=== PATIENT | female | born 1960 | race Caucasian/White ===

== ENCOUNTER 2023-12-16 12:53 | Outpatient (AMB) | payer MEDICAID, SELFPAY ==
--- NOTE | 2023-12-16 13:02 | A.OFFVIS_ITS ---
Vital Signs 12/16/23 13:12 Height 5 ft Weight 235 lb BMI 45.9 BP 136/75 Blood Pressure Location Rt brachial Position Sitting Pulse 61 Pulse Source Pulse Oximeter Pulse Oximetry (%) 98 Oxygen Delivery Method Room Air Intake Visit Reasons: Lumbar radiculopathy Intake Note: Pain today 10/15 Oil Well Service Operator Required: Yes Oil Well Service Operator Language: Macedonian Oil Well Service Operator Name: Provider is fluent in Macedonian Accompanied by: Self / Same As Patient Allergies alcohol Allergy (Intermediate, Verified 12/16/23 15:31) Rash HPI HPI Lumbar radiculopathy: Details: This is a pleasant 63 years old Macedonian speaking female with past history of right lumbar radiculitis, venous insufficiency, dizziness, anxiety and depression, lumbar degenerative disc disease, morbid obesity, chronic low back pain, presents today for initial evaluation of low back pain with bilateral radiculopathy. She also reports chronic left shoulder, bilateral hands and feet pain which she attributes to arthritis. This provider speaks fluently in patient's [place] language. Denies any recent trauma, injury or falls. Patient was seen by Dr. Oliveira in the past and was sent for massages and chiropractic adjustments in 2021 with partial improvement. She reports pain has been progressively worsening since last January 2023. Patient reports constant burning, aching and sharp pain across her lower back with radiation into her anterior thighs and lateral lower legs with numbness, pins and needles, burning, and weakness in her bilateral lower extremities. She also reports significant reoccurrence left lower extremity pain and inflammation due to multiple varicosities. She reports left leg vein surgery at [facility] few years ago but felt it made her symptoms worse. Patient reports increasing incontinence of urine episodes, loss of balance and BLE weakness with severe back pain, especially upon standing or walking. She uses cane at home. Denies any fever or chills, abdominal or groin pain, foot drop, bowel dysfunction or saddle anesthesia. Location: Lower back radiates BLE anteriorly Duration: Chronic pain for over 4 years, worsening for past 1 year Characteristics of symptom or complaint: Aching, throbbing, radiating, shooting, numbness, tingling Aggravating or associated factors: Movement, walking, standing <5 min, prolonged sitting Relieving factors: Rest, laying supine/side, Tylenol, Advil Treatment: Chiropractor therapy, massage [facility] Medical History (Updated 12/16/23 @ 15:39 by TOM Rdz) Anxiety and depression Functional constipation Dyspepsia Nasal obstruction Dizziness Venous insufficiency Essential hypertension, benign Lumbar degenerative disc disease Lumbosacral spondylosis Spondylolisthesis of lumbar region Lumbar radiculopathy History of deep venous thrombosis (DVT) of distal vein of left lower extremity Varicose veins of left lower extremity with inflammation Surgical History (Updated 12/16/23 @ 15:39 by TOM Rdz) H/O vein stripping Review of Systems Const All systems reviewed & are unremarkable except as noted in HPI and below Physical Exam Vital Signs: Last Vital Signs Pulse 61 12/16/23 13:12 BP 136/75 12/16/23 13:12 Pulse Ox 98 12/16/23 13:12 Oxygen Delivery Method Room Air 12/16/23 13:12 BMI result Body Mass Index 45.9 General: Appears afebrile. Alert and oriented. Mood and affect appropriate. Follows and participates in conversation appropriately. Respiratory effort is unlabored. No cough. Able to transition from sit to stand unassisted. Ambulates with bilaterally normal heel strike and toe off, reports increase in BLE, worse on the left. Patient is wearing compression stockings bilaterally General: Yes no CVA tenderness Back/Spine/Pelvis Other: Limited lumbar ROM due to pain. Antalgic gait with mild limping. Can flex forward to 60-65 degrees and extend to 5-10 degrees before experiencing lumbar pain. Demonstrates 4/5 strength of quadriceps bilaterally as well as flexion/dorsiflexion of bilateral feet against resistance. 2+ pedal pulses bilaterally. Seated straight leg rise with dorsiflexion positive bilaterally. Diminished patellar and achilles reflexes bilaterally. Facet loading test positive bilaterally. Mercedez sign positive bilaterally, Boyd?s, Pelvic compression and Stinchfield tests are positive bilaterally. No groin pain with I/E hip rotations. Valsalva maneuver positive. Back: no CVA tenderness Cervical Spine: cervical ROM normal and No Cervical spine tenderness Thoracic/Lumbar Spine: thoracic and lumbar spine normal to inspection, No Thoracic/lumbar spine scar(s), Lasegue's sign positive bilateral and localized, pain with thoraco-lumbar ROM, paraspinal muscle tenderness, thoraco-lumbar ROM limited, No thoracic spinal tenderness and lumbar spinal tenderness (L3-S1) Pelvis: buttock tenderness bilaterally Sacroiliac joints: bilaterally tender to palpation Extrem General: Yes capillary refill normal, Yes no calf tenderness, No clubbing, No cyanosis, Yes edema (nonpitting LLE) and Yes other (multiple varicosities with pain and inflammation LLE) Results Reviewed Results Reviewed: MR LUMBAR SPINE WITHOUT CONTRAST 09/03/21 [facility] INFORMATION: Low back pain. Right lumbar radiculitis. COMPARISON: None. FINDINGS: VERTEBRAL BODIES AND PARASPINAL STRUCTURES: On the sagittal sequence, there is mild retrolisthesis of L2 on L3, mild anterolisthesis of L4 on L5. Multilevel disc degeneration, detailed above. There is multilevel disc desiccation present. Vertebral body heights are maintained. No evidence of acute fracture. Modic 1 endplate degenerative changes marginating L3-L4, and Modic 1 and 2 endplate changes marginating L5-S1. No suspicious marrow signal changes are seen. No suspicious findings in the visualized soft tissues. CONUS MEDULLARIS AND CAUDA EQUINA: Normal, terminating at the level of L1. SPINAL LEVELS: At T11-T12, T12-L1, evaluation of the sagittal sequences shows no significant disc bulge, central canal or neural foraminal stenosis. L1-L2: No significant disc bulge. No significant central canal or neural foraminal stenosis. L2-L3: Moderate disc degeneration, with disc height loss, endplate osteophytes, disc desiccation. Broad-based posterior disc protrusion. Bilateral facet arthropathy. Mild central canal narrowing. No significant neural foraminal narrowing. L3-L4: Paen-mb-mdwjjjhs disc degeneration, disc desiccation, Modic type I endplate edema posteriorly. Broad-based posterior disc bulge with an annular fissure, and superimposed right foraminal disc protrusion. Bilateral facet arthropathy. Mild central canal narrowing. No significant neural foraminal narrowing. L4-L5: Qbcg-vu-quelghvd disc degeneration, disc desiccation, mild anterolisthesis of L4 on L5. Type I Modic plate changes. There is unroofing of the disc/broad-based disc bulge, with a superimposed central disc protrusion. Bilateral facet arthropathy. Mild central canal narrowing. No significant neural foraminal narrowing. L5-S1: Pzgv-fy-masddshz disc degeneration, disc desiccation, mixed Modic type I and type II endplate changes. Mild broad-based posterior disc bulge. Bilateral facet arthropathy. No significant central canal stenosis. Neural foramina are patent. IMPRESSION: 1. Mild retrolisthesis of L2 on L3, mild anterolisthesis of L4 on L5. Multilevel cfhb-lw-viugriob disc degeneration, as detailed level by level. 2. At L3-L4, broad-based posterior disc bulge with annular fissure and a superimposed right foraminal disc protrusion. Mild central canal narrowing. 3. At L2-L3, broad-based posterior disc protrusion, mild central canal narrowing. 4. At L4-L5, unroofing of the disc/broad-based posterior disc bulge, superimposed central disc protrusion. Mild central canal narrowing. 5. At L5-S1, mild broad-based posterior disc bulge. XR LUMBOSACRAL SPINE 08/21/21 at [facility]FORMATION: Lumbar radiculitis. FINDINGS: Vertebral body heights and alignment are normal. At L2-L3, there is a 2 mm retrolisthesis. At L4-L5, there is a 4 mm anterolisthesis. The remaining disc spaces are relatively well-maintained. No acute fracture or spondylolisthesis is seen. This multi-level lumbar spondylosis. The posterior elements are intact. No spondylolysis defect is seen on the oblique views. The paravertebral soft tissues are unremarkable. IMPRESSION: 1. There is mild degenerative disc disease at L2-L3 and L4-L5. 2. No acute fracture or spondylolisthesis is seen. 3. There is no spondylolysis defect noted oblique views. Assessment & Plan Assessment & Plan (1) Lumbar degenerative disc disease: Code(s): M51.369 - Other intervertebral disc degeneration, lumbar region without mention of lumbar back pain or lower extremity pain Category: Medical (2) Lumbosacral spondylosis: Code(s): M47.817 - Spondylosis without myelopathy or radiculopathy, lumbosacral region Category: Medical (3) Lumbar radiculopathy: Code(s): M54.16 - Radiculopathy, lumbar region Category: Medical (4) Low back pain: Code(s): M54.50 - Low back pain, unspecified Category: Medical (5) Sacroiliac joint pain: Code(s): M53.3 - Sacrococcygeal disorders, not elsewhere classified Category: Medical (6) Varicose veins of left lower extremity with inflammation: Code(s): I83.12 - Varicose veins of left lower extremity with inflammation Category: Medical (7) Spondylolisthesis of lumbar region: Code(s): M43.16 - Spondylolisthesis, lumbar region Category: Medical Plan Discussed interventional treatments with patient in greater detail today. Giving significant progression of radicular symptoms with loss of balance, urine incontinence episodes and weakness in bilateral lower extremity with significant radicular pain episodes, we will proceed with updating her MRI and x-ray of lumbar spine to assess for neural integrity and compression and follow up on previous xray and MRI findings. We will also obtain past medical records from Dr. Oliveira's office for previous treatments. Patient reports she is allergic to all forms of alcohol which causes her to break out in rash. She had completed Allergy testing for this in the recent past. This report is not available today. Vascular Referral to Dr. Herndon's office for further evaluation of LLE re- occurrence of pain and inflammation due to varicose veins. Reports previous vein stripping procedure with post-op DVT at [facility]. Recommend patient to start PT and home exercise program. Patient requests PT closer to her home. All questions and concerns have been answered and patient agreed with the treatment plan. Follow-up for x-rays/MRI results and sooner as needed. Orders: Orders XR lumbar spine 6V w bending Today M47.817 - Spondylosis without myelopathy or radiculopathy, lumbosacral region, M51.369 - Other intervertebral disc degeneration, lumbar region without mention of lumbar back pain or lower extremity pain, M54.16 - Radiculopathy, lumbar region, M54.50 - Low back pain, unspecified PT Evaluation and Treatment Today M43.16 - Spondylolisthesis, lumbar region, M47.817 - Spondylosis without myelopathy or radiculopathy, lumbosacral region, M51.369 - Other intervertebral disc degeneration, lumbar region without mention of lumbar back pain or lower extremity pain, M53.3 - Sacrococcygeal disorders, not elsewhere classified, M54.16 - Radiculopathy, lumbar region, M54.50 - Low back pain, unspecified XR sacroiliac joint min 3V Today M47.817 - Spondylosis without myelopathy or radiculopathy, lumbosacral region, M53.3 - Sacrococcygeal disorders, not elsewhere classified, M54.50 - Low back pain, unspecified MR lumbar spine wo con Today M43.16 - Spondylolisthesis, lumbar region, M47.817 - Spondylosis without myelopathy or radiculopathy, lumbosacral region, M51.369 - Other intervertebral disc degeneration, lumbar region without mention of lumbar back pain or lower extremity pain, M54.16 - Radiculopathy, lumbar region Referrals Vascular Surgery Referral I83.12 - Varicose veins of left lower extremity with inflammation Coding Level of Care Code New Pt Level 4 (95891) Complex EM visit Add On G2211 Diagnoses Lumbar degenerative disc disease M51.369 Lumbosacral spondylosis M47.817 Lumbar radiculopathy M54.16 Low back pain M54.50 Sacroiliac joint pain M53.3 Varicose veins of left lower extremity with inflammation I83.12 Spondylolisthesis of lumbar region M43.16
[2023-12-16 13:12] VITALS: BP 136/75; PULSE 61; O2SAT 98; BMI 45.9
== END 2023-12-16 13:52 | disposition home or self-care (01) ==
PROVIDERS: PCP Physician Assistant; Visit Provider Nurse Practitioner Family
DX: M51.369 Other intervertebral disc degeneration, lumbar region without mention of lumbar back pain or lower extremity pain (principal); M47.817 Spondylosis without myelopathy or radiculopathy, lumbosacral region; M54.16 Radiculopathy, lumbar region; M54.50 Low back pain, unspecified; M53.3 Sacrococcygeal disorders, not elsewhere classified; I83.12 Varicose veins of left lower extremity with inflammation; M43.16 Spondylolisthesis, lumbar region
CPT/HCPCS: 99204

== ENCOUNTER → 2023-12-16 12:53 | Outpatient (BNVA) | payer MEDICAID, SELFPAY | PROVIDERS: PCP Physician Assistant; Visit Provider Nurse Practitioner Family | DX: M47.817 Spondylosis without myelopathy or radiculopathy, lumbosacral region (principal); M54.16 Radiculopathy, lumbar region; M51.360 Other intervertebral disc degeneration, lumbar region with discogenic back pain only; M53.3 Sacrococcygeal disorders, not elsewhere classified; M43.16 Spondylolisthesis, lumbar region; I83.12 Varicose veins of left lower extremity with inflammation; E66.01 Morbid (severe) obesity due to excess calories; Z68.42 Body mass index [BMI] 45.0-49.9, adult | CPT/HCPCS: 99212 ==

== ENCOUNTER 2024-01-06 12:58 | Outpatient (AMB) | payer MEDICAID, SELFPAY ==
--- NOTE | 2024-01-06 13:05 | MHC.OFFVIS ---
Vital Signs 01/06/24 13:07 Height 5 ft Weight 235 lb BMI 45.9 BP 141/75 H Blood Pressure Location Rt brachial Position Sitting Pulse 67 Pulse Source Pulse Oximeter Pulse Oximetry (%) 99 Oxygen Delivery Method Room Air Intake Visit Reasons: MRI Results Insurance Verification Clerk Required: Yes Insurance Verification Clerk Language: [place] Insurance Verification Clerk Services: Insurance Verification Clerk Offered & Declined Insurance Verification Clerk Name: Provider is fluent in [place] Accompanied by: Self / Same As Patient Allergies alcohol Allergy (Intermediate, Verified 01/06/24 13:08) Rash HPI Comments Details: Patient presents today for follow-up to discuss recent lumbar spine MRI results. This provider speaks fluently in patient's [place] language. Patient continues to endorse axial low back pain with spinal radiculopathy. She also reports chronic have pain, most severe in her bilateral thumbs with morning stiffness and decreased range of motion. Patient requests referral to [facility]. Unfortunately we have not received complete record from her PCP office to include her complete past medical and surgical history, medication list and recent lab work. Patient reports she was told all her previous lab results were normal and she was considered prediabetic in the past patient. However, she admits consuming 3 large bottles of Pepsi soda, coffee and tea daily. She states there are days she does not drink soda and is aware of its senior care complications such as morbid obesity and diabetes. Denies any recent cough, cold, infection, fever or other significant changes in medical history since last office visit. PRIOR: This is a pleasant 63 years old [place] speaking female with past history of right lumbar radiculitis, venous insufficiency, dizziness, anxiety and depression, lumbar degenerative disc disease, morbid obesity, chronic low back pain, presents today for initial evaluation of low back pain with bilateral radiculopathy. She also reports chronic left shoulder, bilateral hands and feet pain which she attributes to arthritis. This provider speaks fluently in patient's [place] language. Denies any recent trauma, injury or falls. Patient was seen by Dr. Oliveira in the past and was sent for massages and chiropractic adjustments in 2021 with partial improvement. She reports pain has been progressively worsening since last January 2023. Patient reports constant burning, aching and sharp pain across her lower back with radiation into her anterior thighs and lateral lower legs with numbness, pins and needles, burning, and weakness in her bilateral lower extremities. She also reports significant reoccurrence left lower extremity pain and inflammation due to multiple varicosities. She reports left leg vein surgery at [facility] few years ago but felt it made her symptoms worse. Patient reports increasing incontinence of urine episodes, loss of balance and BLE weakness with severe back pain, especially upon standing or walking. She uses cane at home. Denies any fever or chills, abdominal or groin pain, foot drop, bowel dysfunction or saddle anesthesia. Location: Lower back radiates BLE anteriorly Duration: Chronic pain for over 4 years, worsening for past 1 year Characteristics of symptom or complaint: Aching, throbbing, radiating, shooting, numbness, tingling Aggravating or associated factors: Movement, walking, standing <5 min, prolonged sitting Relieving factors: Rest, laying supine/side, Tylenol, Advil Treatment: Chiropractor therapy, massage [facility] Medical History Anxiety and depression Functional constipation Dyspepsia Nasal obstruction Dizziness Venous insufficiency Essential hypertension, benign Lumbar degenerative disc disease Lumbosacral spondylosis Spondylolisthesis of lumbar region Lumbar radiculopathy History of deep venous thrombosis (DVT) of distal vein of left lower extremity Varicose veins of left lower extremity with inflammation Surgical History H/O vein stripping Review of Systems Const All systems reviewed & are unremarkable except as noted in HPI and below Physical Exam General: Appears afebrile. Alert and oriented. Mood and affect appropriate. Follows and participates in conversation appropriately. Respiratory effort is unlabored. No cough. Able to transition from sit to stand unassisted. Ambulates with bilaterally normal heel strike and toe off, reports increase in BLE, worse on the right. Patient is wearing compression stockings bilaterally. Reports bilateral hand pain with morning stiffness and decreased ROM in bilateral thumbs. No swelling, erythema or joint enlargement noted. General: Yes no CVA tenderness Back/Spine/Pelvis Other: Limited lumbar ROM due to pain. Antalgic gait with mild limping. Can flex forward to 60-65 degrees and extend to 5-10 degrees before experiencing lumbar pain. Demonstrates 4/5 strength of quadriceps bilaterally as well as flexion/dorsiflexion of bilateral feet against resistance. 2+ pedal pulses bilaterally. Seated straight leg rise with dorsiflexion positive bilaterally, right>left. Diminished patellar and achilles reflexes bilaterally. Facet loading test positive bilaterally. Mercedez sign positive bilaterally, Boyd?s, Pelvic compression and Stinchfield tests are positive bilaterally. No groin pain with I/E hip rotations. Valsalva maneuver positive. Back: no CVA tenderness Cervical Spine: cervical ROM normal and No Cervical spine tenderness Thoracic/Lumbar Spine: thoracic and lumbar spine normal to inspection, No Thoracic/lumbar spine scar(s), Lasegue's sign positive bilateral and localized, pain with thoraco-lumbar ROM, paraspinal muscle tenderness, thoraco-lumbar ROM limited, No thoracic spinal tenderness and lumbar spinal tenderness (L3-S1) Pelvis: buttock tenderness bilaterally Sacroiliac joints: bilaterally tender to palpation Extrem General: Yes capillary refill normal, Yes no calf tenderness, No clubbing, No cyanosis, Yes edema (nonpitting LLE) and Yes other (multiple varicosities with pain and inflammation LLE) Results Reviewed Results Reviewed: MR SPINE LUMBAR without CONTRAST 12/22/23 at [facility] INDICATION: Chronic lower back pain radiating into the bilateral lower extremities progressive in nature. TECHNIQUE: Unenhanced multiplanar, multisequence MR imaging of the lumbar spine. COMPARISON: MR lumbar spine 09/03/2021, Lumbar spine radiographs 08/21/2021. FINDINGS: Normal lumbar alignment is demonstrated. Vertebral heights are well maintained. Bone marrow signal is within normal limits, and no suspicious osseous lesion is identified. Conus medullaris is unremarkable. Paraspinal soft tissues and visualized portions of the abdomen and pelvis are unremarkable. At L1-2 there is no significant disc herniation or protrusion. No central canal or neural foraminal stenosis is demonstrated. At L2-3 concentric disc bulge with fntn-ks-jxmvsuec canal narrowing and gern-dk-dtbjiqkx bilateral foraminal narrowing. At L3-4 concentric disc bulge with esyw-da-ggxvgoqz canal narrowing and xzze-fa-cpyaivaw bilateral foraminal narrowing. At L4-5 concentric disc bulge with prtg-ug-zdffiaso canal narrowing and ocpl-es-rcvdirfm bilateral foraminal narrowing. At L5-S1 concentric disc bulge with njhx-mq-vovcmrah canal narrowing and moderate bilateral foraminal narrowing. IMPRESSION: 1.Kjih-vn-idtrugfo multilevel degenerative disc disease with loss of disc height and disc desiccation seen diffusely throughout the lumbar spine. 2.Vertebral heights are preserved. No malalignments. 3.No high-grade or limiting canal stenosis or disc herniation. 4.No definite limiting foraminal stenosis at lumbar levels. Moderate bilateral foraminal narrowing at L5-S1 level. At remaining levels, canal and foraminal narrowing are mild/vtxt-dk-lkgehykd. 5.No STIR signal abnormality to suggest bone marrow edema, soft tissue or ligamentous injury. 6.No significant changes from the comparison study 09/03/2021. Assessment & Plan Assessment & Plan (1) Bilateral hand pain: Code(s): M79.641 - Pain in right hand; M79.642 - Pain in left hand Category: Medical (2) Lumbar degenerative disc disease: Code(s): M51.369 - Other intervertebral disc degeneration, lumbar region without mention of lumbar back pain or lower extremity pain Category: Medical (3) Lumbar radiculopathy: Code(s): M54.16 - Radiculopathy, lumbar region Category: Medical (4) Low back pain: Code(s): M54.50 - Low back pain, unspecified Category: Medical (5) Lumbosacral spondylosis: Code(s): M47.817 - Spondylosis without myelopathy or radiculopathy, lumbosacral region Category: Medical (6) Sacroiliac joint pain: Code(s): M53.3 - Sacrococcygeal disorders, not elsewhere classified Category: Medical Plan Discussed interventional treatments with patient in greater detail today. We have pending records release from Dr. Oliveira's office for previous treatments and PCP office for complete past medical and surgical history current medication list. Patient reports she is allergic to all forms of alcohol which causes her to break out in rash. She had completed Allergy testing for this in the recent past. This report is not available today. Patient declined interventional treatments, including therapeutic Bilateral L5-S1 TFESI to address her radicular symptoms lumbar medial branch blocks for axial low back pain. She reports her family member was paralyzed after SHAI injection back in [place] and she is afraid of any injections in her back. Pending PT and home exercise program. Script for PT was provided at previous visit. Scripts provided for Medrol Shree and lidocaine patches. Side effects and precautions were discussed with patient in greater detail, including hyperglycemic effects of Medrol Shree. Patient highly emphasized to decreased soda consumption. All questions and concerns have been answered and patient agreed with the treatment plan. Follow-up for old records review/medications review and sooner as needed. Orders: Referrals Hand Surgery Referral M79.641 - Pain in right hand, M79.642 - Pain in left hand Medications: New methylprednisolone (Medrol (Shree)) PO PER PKG DIR 21 ea 0RF pain M51.369 - Other intervertebral disc degeneration, lumbar region without mention of lumbar back pain or lower extremity pain, M54.16 - Radiculopathy, lumbar region lidocaine 5% leave on most painful area for up to 12 hrs topical 30 days 30 ea 3RF pain M47.817 - Spondylosis without myelopathy or radiculopathy, lumbosacral region, M54.50 - Low back pain, unspecified Coding Level of Care Code Est Pt Level 4 (17811) Complex EM visit Add On G2211 Diagnoses Bilateral hand pain M79.641; M79.642 Lumbar degenerative disc disease M51.369 Lumbar radiculopathy M54.16 Low back pain M54.50 Lumbosacral spondylosis M47.817 Sacroiliac joint pain M53.3
[2024-01-06 13:07] VITALS: BP 141/75; PULSE 67; O2SAT 99; BMI 45.9
== END 2024-01-06 13:40 | disposition home or self-care (01) ==
LOC: HO.PMC 12:59
PROVIDERS: PCP Physician Assistant; Visit Provider Nurse Practitioner Family
DX: M79.641 Pain in right hand (principal); M79.642 Pain in left hand; M51.369 Other intervertebral disc degeneration, lumbar region without mention of lumbar back pain or lower extremity pain; M54.16 Radiculopathy, lumbar region; M54.50 Low back pain, unspecified; M47.817 Spondylosis without myelopathy or radiculopathy, lumbosacral region; M53.3 Sacrococcygeal disorders, not elsewhere classified
CPT/HCPCS: 99214

== ENCOUNTER → 2024-01-06 12:58 | Outpatient (BNVA) | payer MEDICAID, SELFPAY | PROVIDERS: PCP Physician Assistant; Visit Provider Nurse Practitioner Family | DX: M79.641 Pain in right hand (principal); M79.642 Pain in left hand; M51.369 Other intervertebral disc degeneration, lumbar region without mention of lumbar back pain or lower extremity pain; M54.16 Radiculopathy, lumbar region; M54.50 Low back pain, unspecified; M47.817 Spondylosis without myelopathy or radiculopathy, lumbosacral region; M53.3 Sacrococcygeal disorders, not elsewhere classified | CPT/HCPCS: 99212 ==

== ENCOUNTER 2024-01-18 14:10 | Outpatient (AMB) | payer MEDICAID, SELFPAY ==
[2024-01-18 14:28] VITALS: BP 128/82; BMI 45.9
--- NOTE | 2024-01-18 14:28 | A.OFFVIS_ITS ---
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 Pt states she had a left leg Micro procedure 2 times one around 2008 and she cannot recall when the other one was. Pt states the VV are coming back and now she has swelling in her left leg as well. 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 She has been followed by [facility] in the past and her last visit with them was approximately 1 year ago, when the surgeon stated that there was nothing else that she can do for her. She has had several procedures done for venous insufficiency of the left lower extremity, the last 1 in 2021. She states she continues with pain and inflammation of her lower extremities. Complaints include pain in bilateral lower extremities, swelling of lower extremities, cramping, fatigue, and heaviness of the lower extremities. It has been affecting their daily activities including walking and standing. It is noted more so in left leg. Patient denies any previous venous surgery or injections. Patient has a remote history of a DVT in the left lower extremity. Patient denies any history of phlebitis. Trial of compression includes - elevation; she has not been able to use compression stockings They now present for vascular evaluation regarding their varicose veins. ON LICENSE OF [facility] Medical History Anxiety and depression Functional constipation Dyspepsia Nasal obstruction Dizziness Venous insufficiency Essential hypertension, benign Lumbar degenerative disc disease Lumbosacral spondylosis Spondylolisthesis of lumbar region Lumbar radiculopathy History of deep venous thrombosis (DVT) of distal vein of left lower extremity Varicose veins of left lower extremity with inflammation Surgical History (Reviewed 01/18/24 @ 14:30 by VÍCTOR Sampson H/O vein stripping Review of Systems Const Reports as per HPI and Denies weakness ENT Reports Normal hearing present and Denies dizziness Card Reports as per HPI, Denies chest pain, Denies chest pain at rest, Denies chest pain with activity, Denies dyspnea and Denies dyspnea on exertion Resp Reports as per HPI, Denies cough, Denies dyspnea and Denies dyspnea on exertion GI Reports as per HPI, Denies abdominal pain, Denies nausea and Denies vomiting Musc Denies numbness Skin/Breast Reports as per HPI, Denies erythema and Denies wounds Neuro Reports Normal hearing present, Denies dizziness, Denies numbness, Denies Sensory deficit (Neuro) and Denies weakness Psych Reports no additional complaints Endo Reports no additional complaints Physical Exam Vital Signs: Last Vital Signs BP 128/82 01/18/24 14:28 BMI result Body Mass Index 45.9 Const General: healthy appearing and no acute distress Orientation/consciousness: patient oriented x3 HEENT Head: Yes normal to inspection Ears: hearing grossly normal bilaterally Mouth: Normal oral and palatal mucosa present Resp Effort & Inspection: normal respiratory effort and able to speak in complete sentences Auscultation: clear to auscultation bilaterally Cardio Jugular venous distension: no JVD Rate: regular rate Rhythm: regular rhythm Heart sounds: S1 normal heart sound present and S2 normal heart sound present Bruits: no abdominal aortic bruits, no carotid bruits, no femoral bruits and no renal bruits Peripheral pulses: Peripheral pulses 2+ throughout GI Inspection: Yes normal to inspection Palpation (GI): No Abdominal aortic bruit present Skin General skin exam: no rashes or lesions noted Wounds: no wounds Hair: normal Neuro General: patient oriented x3 Cranial nerves: Yes Normal hearing present Cognition (Neuro): normal cognition Gait exam (Neuro): Normal gait present Motor exam (neuro): 5/5 motor strength present throughout Sensory Exam: No Sensory deficit (Neuro) Extrem Other: Bilateral lower extremities: +1 edema noted bilaterally. Palpable DP pulses. Slight discoloration noted Left lower extremity: Small spider vein clusters noted above her knee as well as the mid regalado anteriorly and laterally. CEAP: C - 4 E- primary A - superficial P -reflux General: Yes normal to inspection, Yes full ROM, Yes capillary refill normal and Yes normal gait Assessment & Plan Assessment & Plan (1) Varicose veins of left lower extremity with inflammation: Code(s): I83.12 - Varicose veins of left lower extremity with inflammation Category: Medical Plan: Kyleigh is presenting today as a referral from her PCP for ongoing lower extremity pain and inflammation. She continues to have lower extremity swelling. She has been elevating and that only helps a little bit. She states she gets pain all the time. She does have a history venous procedures at [facility], the last time she was there was proximally 1 year ago. In short, the patient has evidence of venous insufficiency. I have discussed the pathophysiology with the patient. In addition I have provided informational material regarding venous disease to the patient. We have discussed conservative measures including compression, elevation, and exercise. I was not a unable to provide a handout regarding appropriate use of compression stockings and where to purchase good compression stockings as well, we only have them in Danish and the patient is Eritrean-speaking only. I have taken the liberty of ordering venous insufficiency testing with the patient. They will follow up with me after testing. The patient had an opportunity to ask questions regarding the treatment plan. All questions were answered. Imaging studies, laboratory studies and physical exam results were discussed and reviewed in detail. No major barriers to understanding were identified. The patient expressed understanding and agreement with the above treatment plan. The patient is aware they should contact our office by phone for worsening of the current condition or the appearance of new symptoms. Thank you for allowing me to participate in the vascular care of this patient. If you have any questions or concerns regarding the treatment for the above condition please do not hesitate to contact me. The office telephone contact is [phone]. This note is constructed using voice recognition software. While every effort has been made to ensure accuracy, ordnance equipment worker errors may have been included. Thank you for allowing me to participate in the care of your patient. Yours sincerely, ZANA Lake Orders: Orders US venous duplex LE BI 1 Week I83.12 - Varicose veins of left lower extremity with inflammation Coding Level of Care Code New Pt New Pt Level 4 (17794) Patient Type New Diagnoses Varicose veins of left lower extremity with inflammation I83.12
== END 2024-01-18 14:52 | disposition home or self-care (01) ==
PROVIDERS: PCP Physician Assistant; Visit Provider Physician Assistant Surgical
DX: I83.12 Varicose veins of left lower extremity with inflammation (principal)
CPT/HCPCS: 99204

== ENCOUNTER → 2024-01-18 14:10 | Outpatient (BNVA) | payer MEDICAID, SELFPAY | PROVIDERS: PCP Physician Assistant; Visit Provider Physician Assistant Surgical | DX: I83.12 Varicose veins of left lower extremity with inflammation (principal) | CPT/HCPCS: 99212 ==

== ENCOUNTER 2024-01-24 09:16 | Outpatient (REF) | payer MEDICAID, SELFPAY | END 2024-01-24 09:17 | disposition home or self-care (01) | LOC: HO.HOSX 09:16 | DX: M79.641 Pain in right hand (principal); M79.642 Pain in left hand; M65.4 Radial styloid tenosynovitis [de Quervain] | CPT/HCPCS: 73130; 99212 ==

== ENCOUNTER 2024-01-24 14:58 | Outpatient (AMB) | payer MEDICAID, SELFPAY ==
--- NOTE | 2024-01-24 15:13 | A.OFFVIS_ITS ---
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 She says she was only able to rinse with warm water and not cold. She expresses she has cramping of her bilateral hands in her 1st, 2nd and 3rd digits. Patient says she has pain at base of her bilateral thumbs that radiates into her wrist. Expresses she is unable to do any activities with her hands due to them feeling like they are frozen. Reports numbness and tingling in her bilateral wrist and 2nd, 3rd, 4th and 5th digits. She has dropped things in the past due to the pain she feels in her wrist. Difficulty with lifting and picking things up. Patient says shes on medication for her spine but does not know the name. 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 The patient states that over that time, this has progressively worsened, to the point where her pain is now quite severe. Patient states that this pain is primarily located at the base of the bilateral thumbs, but does radiate into the thumb and forearm. Of note, the patient does have numbness and tingling in bilateral hands, but states that this is due to issues that she has been her cervical spine. No other acute complai nts or concerns at this time. [facility] Medical History (Updated 01/24/24 @ 15:38 by ZANA Meadows) Anxiety and depression Functional constipation Dyspepsia Nasal obstruction Dizziness Venous insufficiency Essential hypertension, benign Lumbar degenerative disc disease Lumbosacral spondylosis Spondylolisthesis of lumbar region Lumbar radiculopathy History of deep venous thrombosis (DVT) of distal vein of left lower extremity Varicose veins of left lower extremity with inflammation Surgical History H/O vein stripping Review of Systems Const All systems reviewed & are unremarkable except as noted in HPI and below Physical Exam Vital Signs: BMI result Body Mass Index 45.9 Extrem Other: Patient is alert, oriented, and in no acute distress. Neuro: Normal sensation of the tips of all digits of the bilateral hand at this time Vascular: Cap refill brisk Pain: Patient reports tenderness to palpation of bilateral radial styloid No tenderness to palpation to bilateral ulnar styloid, DRUJ, or elsewhere on bilateral hands or wrists Positive Irma bilaterally ROM: Patient is able to make a closed fist and extend all digits of bilateral hands fully and without difficulty Skin: No lacerations or abrasions. General: No ecchymosis, erythema, or evidence of infection. Psych: Appears grossly normal Affect normal Attitude cooperative Results Reviewed Results Reviewed: X-rays obtained in the office today and independently reviewed by me, Haider Porras PA-C, demonstrate no fracture or acute bony abnormality of bilateral hands. Assessment & Plan Assessment & Plan (1) De Quervain's tenosynovitis, bilateral: Code(s): M65.4 - Radial styloid tenosynovitis [de Quervain] Category: Medical Plan 1. De Quervain tenosynovitis, bilateral Patient is educated about this condition Patient is educated about the treatment options available At this time, patient was uncomfortable with steroid injections or surgery, and would like to try bracing and occupational therapy 1st Patient was provided with bilateral comfort cool thumb spica braces to be worn with daytime activities Patient is also referred to occupational therapy Patient was amenable to this plan If 6-8 weeks after starting occupational therapy patient notices she is still in a lot of pain, she can call to make an appointment to discuss further treatment options, including injections, sooner with any acute concerns Orders: Orders XR hand LT min 3V 01/24/24 M79.642 - Pain in left hand XR hand RT min 3V 01/24/24 M79.641 - Pain in right hand OT Evaluation and Treatment 01/24/24 M65.4 - Radial styloid tenosynovitis [de Quervain] Coding Level of Care Code New Pt Level 3 (25786) Diagnoses De Quervain's tenosynovitis, bilateral M65.4
[2024-01-24 15:15] VITALS: BMI 45.9
== END 2024-01-24 15:54 | disposition home or self-care (01) ==
PROVIDERS: PCP Physician Assistant
DX: M65.4 Radial styloid tenosynovitis [de Quervain] (principal)
CPT/HCPCS: 99203

== ENCOUNTER 2024-02-01 08:28 | Outpatient (REF) | payer MEDICAID, SELFPAY | END 2024-02-01 08:29 | disposition home or self-care (01) | LOC: HO.US 08:28 | PROVIDERS: PCP Physician Assistant; Visit Provider Physician Assistant Surgical | DX: I83.12 Varicose veins of left lower extremity with inflammation (principal); M51.369 Other intervertebral disc degeneration, lumbar region without mention of lumbar back pain or lower extremity pain; M47.817 Spondylosis without myelopathy or radiculopathy, lumbosacral region; M54.16 Radiculopathy, lumbar region; M54.50 Low back pain, unspecified; M53.3 Sacrococcygeal disorders, not elsewhere classified | CPT/HCPCS: 72114; 72202; 93970 ==

== ENCOUNTER 2024-03-22 14:11 | Outpatient (AMB) | payer MEDICAID, SELFPAY ==
--- NOTE | 2024-03-22 14:13 | A.OFFVIS_ITS ---
Intake Visit Reasons: OV f/u - Bilat hand pain Intake Note: Kyleigh is a 63 year old right hand dominant female ,who speaks Bhutanese, presents today with her daughter in law for a follow up visit of her bilateral hand pain. She states that she is doing well. Patient mentions that her braces provided her with relief and she only had 2 sessions of OT due to her insurance changing. Director Of Acquisition Marketing Required: Yes Allergies alcohol Allergy (Intermediate, Verified 03/28/24 15:27) Rash HPI HPI OV f/u - Bilat hand pain: Details: Kyleigh is a 63 year old right hand dominant female ,who speaks Bhutanese, presents today with her daughter in law for a follow up visit of her bilateral hand pain. She states that she is doing well, and that she is feeling better than she was at previous evaluation. Patient mentions that her braces provided her with relief and she only had 2 sessions of OT due to her insurance changing. Patient states that she made her appointment today to get a new referral to OT. No other acute complaints or concerns at this time. [facility] Medical History Anxiety and depression Functional constipation Dyspepsia Nasal obstruction Dizziness Venous insufficiency Essential hypertension, benign Lumbar degenerative disc disease Lumbosacral spondylosis Spondylolisthesis of lumbar region Lumbar radiculopathy History of deep venous thrombosis (DVT) of distal vein of left lower extremity Varicose veins of left lower extremity with inflammation Surgical History H/O vein stripping Social History Alcohol intake: never Patient Tobacco Use Status: Never used Tobacco Current occupational status: retired Current occupation: right hand dominant Review of Systems Const All systems reviewed & are unremarkable except as noted in HPI and below Physical Exam Extrem Other: Patient is alert, oriented, and in no acute distress. Neuro: Normal sensation of the tips of all digits of the bilateral hand at this time Vascular: Cap refill brisk Pain: Patient reports tenderness to palpation of bilateral radial styloid No tenderness to palpation to bilateral ulnar styloid, DRUJ, or elsewhere on bilateral hands or wrists Positive Irma bilaterally ROM: Patient is able to make a closed fist and extend all digits of bilateral hands fully and without difficulty Skin: No lacerations or abrasions. General: No ecchymosis, erythema, or evidence of infection. Psych: Appears grossly normal Affect normal Attitude cooperative Assessment & Plan Assessment & Plan (1) De Quervain's tenosynovitis, bilateral: Code(s): M65.4 - Radial styloid tenosynovitis [de Quervain] Category: Medical Plan 1. Bilateral de Quervain tenosynovitis Patient remains adamant that she would not like any injections or surgical intervention Patient does state she will require another referral to OT due to her insurance changing New referral placed today Patient was advised that she should continue with conservative pain management measures as educated at previous visit Patient is also educated that she can continue wearing the Courtney's provided to her previous visit with daytime activities Patient was amenable To this plan Patient will follow-up as needed with any acute concerns Orders: Orders OT Evaluation and Treatment 03/22/24 M65.4 - Radial styloid tenosynovitis [de Quervain] Coding Level of Care Code Est Pt Level 3 (98216) Diagnoses De Quervain's tenosynovitis, bilateral M65.4
== END 2024-03-22 14:52 | disposition home or self-care (01) ==
PROVIDERS: PCP Physician Assistant
DX: M65.4 Radial styloid tenosynovitis [de Quervain] (principal)
CPT/HCPCS: 99213

== ENCOUNTER → 2024-03-22 14:11 | Outpatient (BNVA) | payer MEDICAID, SELFPAY | PROVIDERS: PCP Physician Assistant | DX: M65.4 Radial styloid tenosynovitis [de Quervain] (principal) | CPT/HCPCS: 99212 ==

== ENCOUNTER 2024-03-28 15:17 | Outpatient (AMB) | payer MEDICAID, SELFPAY ==
--- NOTE | 2024-03-28 15:20 | MHC.OFFVIS ---
Intake Visit Reasons: follow up s/p US 02/01/24 Intake Note: Patient presents for follow up US performed on 02/01/24. Patient states she has radiating pain in both legs. Garage Attendant Services: Garage Attendant Present (Video chat) Garage Attendant Name: Yasmine [id number] Accompanied by: Self / Same As Patient Allergies alcohol Allergy (Intermediate, Verified 03/28/24 15:27) Rash HPI HPI follow up s/p US 02/01/24: Details: Very pleasant 64-year-old female presents for follow-up regarding venous insufficiency. She has had a prior history of venous stripping back in 2021. She reports she has recurrent swelling and discomfort left more so than right. She now presents for follow-up with venous insufficiency testing. Of note she has used compression with minimal relief. Please note online counselling psychologist was present [facility] Medical History Anxiety and depression Functional constipation Dyspepsia Nasal obstruction Dizziness Venous insufficiency Essential hypertension, benign Lumbar degenerative disc disease Lumbosacral spondylosis Spondylolisthesis of lumbar region Lumbar radiculopathy History of deep venous thrombosis (DVT) of distal vein of left lower extremity Varicose veins of left lower extremity with inflammation Surgical History H/O vein stripping Social History Alcohol intake: never Patient Tobacco Use Status: Never used Tobacco Current occupational status: retired Current 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: right hand 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 Review of Systems Const Reports as per HPI ENT Reports no additional complaints Card Denies chest pain, Denies chest pain at rest and Denies chest pain with activity Resp Denies chest congestion and Denies cough GI Reports no additional complaints Musc Details: pain over varicosities, aching of lower extremities, swelling, cramping, heaviness and tiredness, itching Denies abnormal gait Skin/Breast Reports pruritus and Denies wounds Neuro Reports no additional complaints and Denies abnormal gait Psych Denies no additional complaints Physical Exam Const General: cooperative, healthy appearing and comfortable Orientation/consciousness: oriented to person, oriented to place and oriented to time Neck Carotids: no bruits Chest Chest palpation & inspection: normal inspection of the chest and normal palpation of entire chest wall Resp Effort & Inspection: normal respiratory effort and able to speak in complete sentences Cardio Rate: regular rate Heart sounds: S1 normal heart sound present and S2 normal heart sound present Peripheral pulses: Peripheral pulses 2+ throughout GI Inspection: Yes normal to inspection Skin Other: +2 edema, left leg CEAP Classification C4 - skin color changes Ep - Etiology Primary As - superficial veins P - reflux General skin exam: dry skin Neuro General: oriented to person, oriented to place and oriented to time Extrem Right lower extremity: full ROM, normal capillary refill and edema Left lower extremity: full ROM, normal capillary refill and edema Psych Mental Status: mental status grossly normal Results Reviewed Results Reviewed: Brief summary of venous insufficiency testing is as follows: right great saphenous vein: negative right small saphenous vein: negative right accessory vein: none present left great saphenous vein: Positive left small saphenous vein: negative left accessory vein: none present Please note there is no evidence of any venous aneurysms or significant tortuosity Assessment & Plan Assessment & Plan (1) Varicose veins of left lower extremity with inflammation: Code(s): I83.12 - Varicose veins of left lower extremity with inflammation Category: Medical Plan: In short patient does have left lower extremity venous insufficiency. They continue to be a source of discomfort for the patient. The patient has tried conservative treatment with compression, leg elevation and exercise program for over 3 months time. They have been compliant with all treatment. This has provided minimal relief for the patient. I do not anticipate this course of treatment will alter the underlying etiology. The patient has been scheduled for lower extremity venous treatment inclusive of --- left great saphenous vein Cyanoacralate ablation. Risks, benefits, and complications of this procedure has been discussed in detail with the patient including but not limited to bleeding, infection, and the development of a DVT. The patient would like to think about this. Information was provided to the patient. She will reach back out to us if she requires procedure. Thank you for allowing us to assist in her care. Coding Level of Care Code Est Pt Level 4 (60369) Diagnoses Varicose veins of left lower extremity with inflammation I83.12
== END 2024-03-28 16:15 | disposition home or self-care (01) ==
PROVIDERS: PCP Physician Assistant; Visit Provider Surgery Vascular Surgery
DX: I83.12 Varicose veins of left lower extremity with inflammation (principal)
CPT/HCPCS: 99214

== ENCOUNTER → 2024-03-28 15:17 | Outpatient (BNVA) | payer MEDICAID, SELFPAY | PROVIDERS: PCP Physician Assistant; Visit Provider Surgery Vascular Surgery | DX: I83.12 Varicose veins of left lower extremity with inflammation (principal) | CPT/HCPCS: 99212 ==

== ENCOUNTER 2024-04-25 14:15 | Outpatient (AMB) | payer MEDICAID, SELFPAY ==
--- NOTE | 2024-04-25 14:36 | A.OFFVIS_ITS ---
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 Last mammo 2022, normal. Thinks she may have had it done at [facility]. Java Solutions Architect Required: Yes Java Solutions Architect Services: Java Solutions Architect Present (Naked) Java Solutions Architect Name: Laquita [id number] Information Interpreted: clinical only Coffee Shop Manager: Coffee Shop Manager Present (Marj) Accompanied by: Self / Same As Patient Allergies alcohol Allergy (Intermediate, Verified 04/25/24 14:52) Rash HPI Comments Details: She is a postmenopausal woman presenting for her new patient annual lactation consultant examin [facility], [place]. She is doing well with lactation consultant concerns: I have pain in the bottom of belly (on set with the vaginal insert medication, stopped with use) and vaginal discharge w/odor (onset a long time ), no itching or burning, no dysuria, strains to get her urine out. Was treated in the recently for this, has a follow for this planned with Dr. Reich on 04/26/24. Pelvic pain now resolved, concerned for ongo ing back pain. Currently sexually active. Denies any vaginal dryness or irritation. Admit to eating normally, no regular exercise. Last pap smear; unknown. Last mammogram; 2022. Colonoscopy is not UTD. Denies any family history of breast, ovarian or colon cancer. [facility] Medical History Anxiety and depression Functional constipation Dyspepsia Nasal obstruction Dizziness Venous insufficiency Essential hypertension, benign Lumbar degenerative disc disease Lumbosacral spondylosis Spondylolisthesis of lumbar region Lumbar radiculopathy History of deep venous thrombosis (DVT) of distal vein of left lower extremity Varicose veins of left lower extremity with inflammation Surgical History H/O vein stripping Social History Alcohol intake: never Patient Tobacco Use Status: Never used Tobacco Current occupational status: retired Current occupation: right hand dominant Female Reproductive History Menstrual Total pregnancies: 7 Full term: 3 Ab induced: 4 Review of Systems Const All systems reviewed & are unremarkable except as noted in HPI and below Reports as per HPI Eyes Reports no additional complaints ENT Reports no additional complaints Card Reports no additional complaints Resp Reports no additional complaints GI Reports as per HPI and Reports no additional complaints Reports as per HPI Musc Reports no additional complaints Skin/Breast Reports as per HPI Neuro Reports no additional complaints Psych Reports no additional complaints Endo Reports no additional complaints Vasile/Lymph Reports no additional complaints Aller/Immun Reports no additional complaints Physical Exam Vital Signs: Last Vital Signs BP 128/76 04/25/24 15:05 BMI result Body Mass Index 45.9 Const General: cooperative, healthy appearing, no acute distress, well developed and alert Orientation/consciousness: patient oriented x3 HEENT Head: Yes normal to inspection Eyes General: appearance normal, both eyes and all related structures Neck Neck: Yes normal visual inspection Thyroid: Thyroid normal Chest Chest palpation & inspection: normal inspection of the chest and other (no puckering, dimpling, peau de orange, retraction, discharge, masses) Breast/axilla inspection: normal inspection of the breasts Breast/axilla palpation: normal palpation of the breasts Resp Effort & Inspection: normal respiratory effort GI Inspection: Yes normal to inspection Palpation (GI): Soft to palpation Rectal Exam - Female: deferred General: Yes bladder normal to palpation External Female Exam: normal external appearance and normal appearance of the urethra Speculum Exam - Vagina: normal appearance of the vagina, normal palpation and normal vaginal discharge Speculum Exam - Cervix: normal appearance of the cervix, normal palpation and Other cervical findings present (Bled with Pap, atrophic changes) Bimanual exam- vagina & uterus: normal bimanual exam, normal palpation, uterine size normal, bladder normal to palpation, normal palpation and non-tender Bimanual Exam- Adnexa, other: no masses and rectocele Skin General skin exam: no rashes or lesions noted Rashes: no rashes Neuro General: patient oriented x3 Cognition (Neuro): normal cognition Extrem General: Yes normal to inspection Psych Attitude: cooperative Thought process: Normal thought process present Assessment & Plan Assessment & Plan (1) Encounter for well woman exam with routine gynecological exam: Code(s): Z01.419 - Encounter for gynecological examination (general) (routine) without abnormal findings Category: Medical (2) Vaginal discharge: Code(s): N89.8 - Other specified noninflammatory disorders of vagina Plan: BV, GC culture, await results for a plan of care. Plan Discussed: Current recommendations for pap smears per ASCCP guidelines. Pap obtained. Breast awareness, periodic self breast exams and yearly mammogram. Mammogram ordered. Maintain a healthy lifestyle, well balanced diet including Calcium 1,200 mg and Vitamin D 600 IU daily, and routine exercise. Contact the office with any postmenopausal bleeding. Patient verbalizes understanding and agrees to the plan of care. She was given opportunity to ask questions and all questions were answered to the best of my ability. RTO in 1 year for annual lactation consultant exam. Total time I personally spent on visit and management today: ?10 minutes. Time spent included review of pertinent office notes in the electronic health record; review of laboratory and imaging results; review of personal family medical history; discussing diagnosis and plan of care with the patient; documenting the encounter in the EMR. This note is constructed using voice recognition software. While every effort has been made to ensure accuracy, shuttle van driver errors may have been included. Orders: Orders MM tomosynthesis screening BI Today Z12.31 - Encounter for screening mammogram for malignant neoplasm of breast Coding Level of Care Code New Pt Level 2 (56790) New Pt Prev Care 40-64y(40221) Diagnoses Encounter for well woman exam with routine gynecological exam Z01.419 Vaginal discharge N89.8
[2024-04-25 15:05] VITALS: BP 128/76; BMI 45.9
--- OUTSIDE RECORDS SUMMARY | 2024-04-25 15:15 | XMS_ITS | Clinical Summary ---
Author Organization [facility] Address [address] [place] [address] Care Team Providers Care Pole Tester Name Role Phone Gerber Whitfield PA-C Primary Care Provider + [phone] Source Comments PLEASE NOTE, if this patient is a minor, it may be UNLAWFUL to discuss sensitive information that is contained in these records (such as FAMILY PLANNING, MENTAL HEALTH or SUBSTANCE ABUSE) with the minor patient's parent or other person without the patient's specific authorization.[facility] Allergies No known active allergies Medications dilTIAZem HCL (TIAZAC) 180 mg 24 hr capsule Take 1 Capsule by mouth once daily 90 Capsule 3 4 07/07/19 25 Active meclizine (ANTIVERT) 12.5 mg tabletIndications: Dizziness Take 1 Tablet by mouth every 8 (eight) hours as needed (dizziness) 90 Tablet 2 4 12/03/19 25 Active omeprazole (PRILOSEC) [address] capsuleIndications :Dyspepsia Take 1 Capsule by mouth every morning before breakfast 90 Capsule 1 4 Active acetaminophen (TYLENOL) 500 mg tabletIndications: Lumbar radiculopathy Take 2 Tablets by mouth 2 (two) times daily 360 Tablet 2 4 Active polyethylene glycol, PEG, 3350 (GLYCOLAX) 17 gram/dose powderIndications: Functional constipation Take 17 g by mouth once daily Dissolve in a glass (8 oz) of water. 850 g 5 4 Active docusate sodium (COLACE) 100 mg capsuleIndications :Functional constipation Take 2 Capsules by mouth nightly at bedtime 180 Capsule 1 4 Active rosuvastatin (CRESTOR) 10 mg tablet Take 1 Tablet by mouth nightly at bedtime 90 Tablet 3 4 01/26/20 25 Active valsartan (DIOVAN) 160 mg tablet Take 1 Tablet by mouth once daily 90 Tablet 3 4 01/26/20 25 Active estradioL [address] 10 mcg vaginally 3 (three) times a week 36 Tablet 3 4 Active Active Problems Problem Noted Date Diagnosed Date Essential hypertension, benign 10/09/2022 Other pulmonary embolism wit hout acute cor pulmonale (HCC-CMS) 02/202204/06/2022 Overview (04/06/2022): Result type: CT Angio Chest Result date: February 18, 2022 11:53 EST Result status: Auth (Verified) Result title: CT Angio Chest Performed by: Gabriela Morales MD on February 18, 2022 13:04 EST Verified by: Gabriela Morales MD on February 18, 2022 13:04 EST Encounter info: [id number], [facility] [place], Disch IP, 02/18/2022 - 02/20/2022 * Final Report * Reason For Exam PE suspected, Intermediate prob;Other: RESULT: CT Angio Chest EXAMINATION: CT Angio Chest INDICATION: Hx of Present Illness: pt endorses nausea, headache and dysuria. Pt had recent vascular surgery on left leg; Reason: Other:; PE suspected, Intermediate prob; Clinical Question(s): Pulmonary Embolism; Order Comment: TECHNIQUE: Spiral CTA of the chest was performed after rapid IV contrast administration without cardiac gating, triggered by an ANTHONY on the main pulmonary artery. Images are formatted in multiple planes using 2-D multiplanar and 3-D maximum intensity projection. 50 cc of Omnipaque 300 was administered intravenously. Weight-based protocol using automatic tube modulation was used to optimize exposure parameters. COMPARISONS: None. ANGIOGRAPHIC FINDINGS: The contrast opacification of the pulmonary arteries is fair. There are filling defects noted in the right lower lobe basal segments of the pulmonary artery, for example series 301, image 73, compatible with pulmonary embolism.. The caliber of the pulmonary arteries is within normal limits. No evidence of reflux into the IVC. NON-ANGIOGRAPHIC FINDINGS: Stenocaptioner View Findings, Lines and Tubes: None. Trachea and Airways: Patent without evidence of tracheal or endobronchial lesion. Lungs and Pleura: There is atelectasis at the lung bases. No effusion or pneumothorax. Mediastinum and tania: No mass or hematoma. No mediastinal or hilar lymphadenopathy. No esophageal abnormality. Heart: Heart is normal in size. No pericardial effusion. Chest Wall Soft Tissues: Normal. Diaphragm and upper abdomen: Hepatic steatosis.. Small hiatal hernia. Fatty atrophy of the pancreas. Bones: No acute abnormality. Multilevel degenerative changes of the visualized spine. IMPRESSION: 1. Findings consistent with acute pulmonary embolism. 2. Hepatic steatosis. 3. Small hiatal hernia. These findings were discussed with Dr. Ewing via cortext at 1:00 PM on 02/18/2022. WSN: [id number] Ordering Physician: Sandepe Vazquez Signature Line Dictated By: Gabriela Morales MD Dictated Date/Time: 02/18/22 1:04 pm Reviewed By: Gabriela Morales MD Signed By: Gabriela Morales MD Signed Date/Time: 02/18/22 1:04 pm Transcribed By: ZOË Transcribed Date/Time: 02/18/22 12:[address] Angio Chest This document has an image Hepatitis B core antibody positive 10/30/2019 Venous insufficiency 10/30/2019 Mixed incontinence 10/30/2019 Primary osteoarthritis involving multiple joints 07/08/2015 Cognitive decline 07/08/2015 H/O mammogram 06/13/2014: normal 04/09/2015 Overview (04/09/2015): [facility] Diagnostic Imaging Department [address] [place] [address] Patient: MERRITT DUMONT /Age/Sex: 1960 - 54 - F Unit#: [id number] Location/Status: SPDIMAM/REG CLI Mnemonic[facility] Physician: GERBER WHITFIELD PA Gio Screening Digital - 06/13/14 - 09 History: Breast cancer screening. Technique: Bilateral full field digital mammography with Image evaluation on a Novavax work station with computer aided detection. Comparison: [id number] mammograms Findings: The breast tissue consists of a combination of fatty and fibroglandular elements (less than 25% fibroglandular tissue, category A density). There is no suspicious mass, architectural distortion, suspicious group of microcalcification or suspicious density. Impression: No mammographic evidence of malignancy. BIRADS category 1; negative study, 3341F code G0202, 24968, 7025F A negative mammogram in the presence of a clinically suspicious palpable abnormality does not preclude the possibility of malignancy or alter the indications for biopsy. 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 FINDINGS: AP, lateral, right and left oblique, and coned-down spot lateral views of the lumbosacral spine demonstrate grade 1, 5.2 mm posterior spondylolisthesis of L5 relative to S1. The alignment of the bony structures is otherwise anatomic. No fracture is seen. There is narrowing of the L1-2 and L2-3 disc spaces with adjacent osteophyte formation consistent with degenerative disc disease. The remaining disc spaces are well-maintained. There is no evidence of significant facet joint disease. IMPRESSION: No acute findings. There is grade 1, 5.2 mm posterior spondylolisthesis of L5 relative to S1. There is degenerative disc disease at the L1-2 and L2-3 levels. Code 15776 Dictating Physician: VERONICA KING MD Electronically Signed by: VERONICA KING MD Dic Date/Time: 02/18/15 1527 Sign date/Time: 02/18/15 1530 Anxiety and depression 04/09/2015 Seasonal allergies 07/04/2014 Non morbid obesity due to excess calories 2014 Dyspepsia 04/10/2014 Post-nasal drip 04/10/2014 Nasal congestion 03/16/2014 Encounters Date Type Department Care Team Description 02/11/2024 10:00 AM EST Office Visit [facility] [address] [place] [address] Seth Reich MD Screening for HPV (human papillomavirus) (Primary Dx); Vaginal atrophy; Cystocele with rectocele 02/11/2024 Travel 01/26/2024 9:00 AM EST Office Visit [facility] [address] [place] [phone] Floresita Everett MD [place], [place] Dyspnea on exertion (Primary Dx) 01/26/2024 Travel from Last 3 Months Immunizations Name Administration Dates Next Due INFLUENZA, SEASONAL, INJECTABLE 2014 Social History Tobacco Use Types Packs/Day Years Used Date Smoking Tobacco: Never Passive Smoke Exposure: Never Smokeless Tobacco: Never Tobacco Cessation:Counseling Given: Not Answered Alcohol Use Standard Drinks/Week Comments No 0 (1 standard drink = 0.6 oz pur e alcohol) Social Connections Answer Date Recorded Connectedness 1 09/14/2023 Financial Resource Strain Answer Date R ecorded Financial Resource Strain 1 2023 Stress Answer Date Recorded Stress 1 09/14/2023 Physical Activity Answer Date Recorded Physical Activity 0 10/29/2018 Food Insecurity Answer Date Recorded Food 1 09/14/2023 Transportation Needs Answer Date Record ed Transportation 1 09/14/2023 Housing Stability Answer Date Recorded Housing 1 09/14/2023 Safety and Environment Answer Date Rod rded Safety 0 10/09/2022 Utilities Answer Date Recorded Utilities 1 09/14/2023 Employment Answer Date Recorded Stress 0 10/09/2022 Comments No Sex and Gender Information Value Date Recorded Sex Assigned at Female 10/30/2019 8:13 AM PDT Legal Sex Female 11:36 AM PDT Gender Identity Female 10/30/2019 8:13 AM PDT Sexual Orientation Straight 11/02/2019 11 :30 AM PDT Last Filed Vital Signs Vital Sign Reading Time Taken Comments Blood Pressure 135/81 02/11/2024 10:01 AM EST Pulse 65 02/11/2024 10:01 AM EST Temperature 36.7 ??C (98 ??F) 01/26/2024 8:52 AM EST Respiratory Rate 16 02/11/2024 10:01 AM EST Oxygen Saturation 100% 02/11/2024 10:01 AM EST Inhaled Oxygen Concentration - - Weight 109.8 kg (242 lb) 02/11/2024 10:01 AM EST Height 154.9 cm (5' 1 ) 02/11/2024 10:01 AM EST Body Mass Index 45.73 02/11/2024 10:01 AM EST Plan of Treatment Upcoming Encounters Date Type Department Care Team ([facility] st Contact Info) Description 04/26/2024 10:40 AM EST Office Visit [facility] [address] [place] [phone] Seth Reich MD [address] [place] [address] [place] [address] 06/20/2024 3:00 PM EDT Office Visit [facility] [address] [place] [phone] Gerber Whitfield PA-C [address] [place] [phone] Health Maintenance Due Date Last Done Comments HPV Screening 1960 Imm-Zoster, Recombinant (1 of 2) 02/11/2010 Annual Preventive Care Visit 10/10/2023 10/09/2022, 10/30/2019, 11/10/2013, Additional history exists Depression Monitoring 12/15/2023 09/14/2023 , 10/09/2022, 04/06/2022, Additional history exists Alcohol and Drug Screen 03/08/2024 09/14/19, 10/09/2022, 04/06/2022, Additional history exists [id number] ( season) 2024 Postponed from 11/07/2023 (Patient postponement) Diabetes Screening 09/13/2024 09/14/2023, 0 09/14/2023, 03/26/2021, Additional history exists Lipid Screening 09/13/2024 09/14/2023, 03/08, 05/13/2020, Additional history exists Breast Cancer Screening (Mammogram) 11/24/2024 11/24/2022, 09/23/2021, 09/23/2021, Additional history exists Tobacco Screening 02/10/2025 02/11/2024 Pap Smear 02/10/2027 02/11/2024, 11/11/2013 Cervical Cancer Screening 02/10/2029 Pap + HPV 02/10/2029 02/11/2024 Hepatitis C Screening Completed 07/25/2013 Imm-Influenza Discontinued 2014, 2014 HIV Screening Completed 10/30/2019 Cervical Ablation/Cold-Knife Conization Discontinued Cervical Cryotherapy Discontinued Colposcopy Discontinued Endometrial Biopsy Discontinued Excision/Leep Discontinued HPV Genotyping Discontinued Imm-DTaP/Tdap/Td Discontinued Vaginal Pap Discontinued Vulvoscopy Discontinued Procedures Procedure Name Priority Date/Time Associated Diagnosis Comments REFERRAL SCANNED DOCUMENT 03/28/2024 3:00 AM EST REFERRAL SCANNED DOCUMENT 03/22/2024 3:00 AM EST REFERRAL FOR CARDIAC STRESS TEST Routine 02/16/2024 3:00 AM EST Dyspnea on exertion THIN PREP IMAGE PAP + HPV RNA E6/E7 W/RFLX HPV 16, 18/45 Routine 02/11/2024 10:25 AM EST Screening for HPV (human papillomavirus) IMAGING SCANNED DOCUMENT 02/01/2024 3:00 AM EST IMAGING SCANNED DOCUMENT 02/01/2024 3:00 AM EST IMAGING SCANNED DOCUMENT 02/01/2024 3:00 AM EST IMAGING SCANNED DOCUMENT 02/01/2024 3:00 AM EST IMAGING SCANNED DOCUMENT 02/01/2024 3:00 AM EST IMAGING SCANNED DOCUMENT 02/01/2024 3:00 AM EST REFERRAL SCANNED DOCUMENT 01/24/2024 3:00 AM EST COMPREHENSIVE METABOLIC PANEL Routine 09/14/2023 10:41 AM EDT Non morbid obesity due to excess calories Essential hypertension, benign Cervicogenic headache Right lumbar radiculopathy Hepatitis B core antibody positive Elevated glucose LIPID PANEL Routine 09/14/2023 10:41 AM EDT Non morbid obesity due to excess calories Essential hypertension, benign Cervicogenic headache Right lumbar radiculopathy Hepatitis B core antibody positive Elevated glucose MAMMO DIGITAL SCREEN MELISSA W CAD 3D Routine 11/24/2022 3:00 AM EDT Breast cancer screening by mammogram ANTIBODY HIV-1&HIV-2 SINGLE RESULT Routine 10/30/2019 11:44 AM EDT Routine general medical examination at a health care facility HEPATITIS A,B,C PANEL Routine 07/25/2013 1:22 PM EDT Routine general medical examination at a health care facility from Last 3 Months or Most Recently Relevant to Health Maintenance Results * REFERRAL SCANNED DOCUMENT (03/28/2024 3:00 AM EST) Only the most recent of3 resultswithin the time period is included. 03/28/2024 3:00 AM EST Gerber Whitfield PA-C SCAN REFERRAL Final Result * REFERRAL FOR CARDIAC STRESS TEST (02/16/2024 3:00 AM EST) 02/16/2024 3:00 AM EST Floresita Everett MD REFERRAL CARD Final Result * THIN PREP IMAGE PAP + HPV RNA E6/E7 W/RFLX HPV 16, 18/45 (02/11/2024 10:25 AM EST) CLINICAL INFORMATION See Note [facility] Comment:Postmenopausal LMP See Note [facility] Comment:NONE GIVEN PREV. PAP See Note [facility] Comment:NONE GIVEN PREV. BX See Note [facility] Comment:NONE GIVEN SOURCE See Note [facility] Comment:Cervix STATEMENT OF ADEQUACY See Note [facility] Comment: Satisfactory for evaluation. Endocervical/transformation zone component absent. INTERPRETATION/RESU LT See Note [facility] Comment: Cytology Results: Negative for intraepithelial lesion or malignancy. COMMENT See Note [facility] Comment: This Pap test has been evaluated with computer assisted technology. MERCHANT BANKER See Note [facility] Comment: RXB, CT(ASCP) CT screening location: [address] ??[address] REVIEW [employer] See Note [facility] Comment: MSM, CT(ASCP) CT screening location: [address] ??[address] COMMENT [facility] HPV MRNA E6/E7 Not Detected Not Detected [facility] Comment: Methodology: Garden Machinery Mechanic-Mediated Amplification This assay detects E6/E7 viral messenger RNA (mRNA) from 14 high-risk HPV types (16,18,31,33,35,39,45,51,52,56,58,59,66,68). Cervical sources are required for HPV testing. If a vaginal source from a patient who has had a total hysterectomy with removal of cervix was submitted, please contact the testing laboratory for alternative testing options. For additional information, please refer to http://education.[employer]/faq/XNQ993n4 (This link if provided for information/ educational purposes only.) Swab Cervix uteri structure / Unknown 02/11/2024 10:25 AM EST 2024 2:08 AM EST Narrative [employer] [facility] - 02/16/2024 2:09 PM EST EXPLANATORY NOTE: The Pap is a screening test for cervical cancer. It is not a diagnostic test and is subject to false negative and false positive results. It is most reliable when a satisfactory sample, regularly obtained, is submitted with relevant clinical findings and history, and when the Pap result is evaluated along with historic and current clinical information. Seth Reich MD LAB - NO BLOOD DRAW Final Resul t [facility] [address] [address], [facility] [address] [address] * IMAGING SCANNED DOCUMENT (02/01/2024 3:00 AM EST) Only the most recent of6 resultswithin the time period is included. 02/01/2024 3:00 AM EST Gerber Whitfield PA-C SCAN IMAGING Final Result * (ABNORMAL) LIPID PANEL (09/14/2023 10:41 AM EDT) CHOLESTEROL, TOTAL 226(H) <200 mg/dL [employer] [facility] HDL CHOLESTEROL 73 > OR = 50 mg/dL [employer] [facility] TRIGLYCERIDES 116 <150 mg/dL [employer] [facility] LDL-CHOLESTEROL 131(H) 99 mg/dL (calc) [employer] [facility] Comment: Reference range: <100 Desirable range <100 mg/dL for primary prevention; ?? <70 mg/dL for patients with CHD or diabetic patients with > or = 2 CHD risk factors. LDL-C is now calculated using the Gely calculation, which is a validated novel method providing better accuracy than the Friedewald equation in the estimation of LDL-C. Beau NIELSEN et al. MIGEL. 2013;310(61): 9703-0384 (http://education.[employer]/faq/BRY142) CHOL/HDLC RATIO 3.1 <5.0 (calc) [facility] NON-HDL CHOLESTEROL 153(H) <130 mg/dL (calc) [facility] Comment: For patients with diabetes plus 1 major ASCVD risk factor, treating to a non-HDL-C goal of <100 mg/dL (LDL-C of <70 mg/dL) is considered a therapeutic option. Blood Blood / Unknown 09/14/2023 1 0:41 AM EDT 09/14/2023 10:41 AM EDT Narrative [employer] - 09/17/2023 5:36 PM EDT FASTING:UNKNOWN us Gerber Whitfield PA-C LAB - BLOOD DRAW Final Resul t [employer] [address] [place] [id number], [facility] [address] [place] [phone] * COMPREHENSIVE METABOLIC PANEL (09/14/2023 10:41 AM EDT) [facility] GLUCOSE 92 65 - 99 mg/dL [facility] Comment: ?Fasting reference interval UREA NITROGEN (BUN) 16 7 - 25 mg/dL [facility] CREATININE (blood) 0.68 0.50 - 1.05 mg/dL [facility] EGFR 98 > OR = 60 mL/min/1. 73m2 [facility] BUN/CREATININE RATIO SEE NOTE: [facility] Comment: ?? Not Reported: BUN and Creatinine are within ?? reference range. ? SODIUM 140 135 - 146 mmol/L [facility] POTASSIUM 4.7 3.5 - 5.3 mmol/L [facility] CHLORIDE 102 98 - 110 mmol/L [facility] CARBON DIOXIDE 31 20 - 32 mmol/L [facility] CALCIUM 9.8 8.6 - 10.4 mg/dL [facility] PROTEIN, TOTAL 7.3 6.1 - 8.1 g/dL [facility] ALBUMIN 4.4 3.6 - 5.1 g/dL [facility] GLOBULIN 2.9 1.9 - 3.7 g/dL (calc) [facility] ALBUMIN/GLOBULI N RATIO 1.5 1.0 - 2.5 (calc) [facility] BILIRUBIN, TOTAL 0.4 0.2 - 1.2 mg/dL [facility] ALKALINE PHOSPHATASE 89 37 - 153 U/L [facility] AST 13 10 - 35 U/L [facility] ALT 18 6 - 29 U/L [facility] Blood Blood / Unknown 09/14/2023 1 0:41 AM EDT 09/14/2023 10:41 AM EDT Narrative [facility] - 09/17/2023 5:36 PM EDT FASTING:UNKNOWN Gerber Whitfield PA-C LAB - BLOOD DRAW Edited Resu lt - Final [facility] [address] [address], [facility] [address] [id number] * MAMMO DIGITAL SCREEN MELISSA W CAD 3D (11/24/2022 3:00 AM EDT) 11/24/2022 3:00 AM EDT Gerber Whitfield PA-C IMG MAMMO Edited Resul t - Final * HIV-1 & HIV-2 ANTIBODIES (10/30/2019 11:44 AM EDT) Pathologist [facility] HIV 1 AND 2 ANTIBODY SCREEN NEGATIVE NEGATIVE [facility] Comment: This assay is a 4th generation assay allowing for earlier detection of HIV infection by detecting the presence of the HIV-1 p24 antigen as well as the traditional antibodies to HIV type 1 (including group O) and type 2. ??Use of a 4th generation assay is the current CDC recommendation for HIV screening. Blood specimen (specimen) Blood / Unknown 10/30/2019 11:44 AM EDT 10/30/2019 1:[address] [facility] - 10/30/2019 4:45 PM EDT [employer], a member of [address] [address] [employer] - Kathleen Garcia [place] [id number] ORD# [id number] Gerber Whitfield PA-C LAB - BLOOD DRAW Final Resul t Performing Organization Address City/[facility]/ZIP Co de Phone Number [address] [address], * (ABNORMAL) HEPATITIS A,B,C PANEL (07/25/2013 1:22 PM EDT) HEPATITIS B SURFACE ANTIBODY POSITIVE(A) NEGATIVE [facility] HEPATITIS B SURFACE ANTIGEN NEGATIVE NEGATIVE [facility] HEPATITIS C VIRUS ANTIBODY NEGATIVE NEGATIVE [facility] HEPATITIS A ANTIBODY TOTAL POSITIVE(A) NEGATIVE [facility] HEPATITIS B CORE ANTIBODY POSITIVE(A) NEGATIVE [facility] Blood specimen (specimen) Blood / Unknown 07/25/2013 1:22 PM EDT 07/25/2013 1:[address] [facility] - 07/25/2013 8:42 PM EDT [facility] [address] [place] [id number] [place] [id number] ORD# [id number] Gerber Whitfield PA-C LAB - BLOOD DRAW Edited Resu lt - Final [facility] [employer] [address], [place] [phone] from Last 3 Months or Most Recently Relevant to Health Maintenance Insurance [address] [employer] Care Teams Pole Tester Relationship Specialty Start Date End Date Gerber Whitfield PA-C [address] [place] [phone] PCP - General Internal Medicine 06/12/13
== END 2024-04-25 15:59 | disposition home or self-care (01) ==
LOC: HO.HWS 14:15
PROVIDERS: PCP Physician Assistant; Visit Provider Advanced Practice Midwife
DX: Z01.419 Encounter for gynecological examination (general) (routine) without abnormal findings (principal); N89.8 Other specified noninflammatory disorders of vagina
CPT/HCPCS: 99212; 99386; 99459

== ENCOUNTER → 2024-04-25 14:15 | Outpatient (BNVA) | payer MEDICAID, SELFPAY | PROVIDERS: PCP Physician Assistant; Visit Provider Advanced Practice Midwife | DX: Z01.419 Encounter for gynecological examination (general) (routine) without abnormal findings (principal); N89.8 Other specified noninflammatory disorders of vagina | CPT/HCPCS: 99212; 99386; 99459 ==

== ENCOUNTER 2024-04-25 16:00 | Outpatient (REF) | payer MEDICAID, SELFPAY | END 2024-04-25 16:01 | disposition home or self-care (01) | LOC: HO.LNP 16:00 | PROVIDERS: Visit Provider Advanced Practice Midwife | DX: Z01.419 Encounter for gynecological examination (general) (routine) without abnormal findings (principal) | CPT/HCPCS: 88175 ==

== ENCOUNTER 2024-04-26 12:12 | Outpatient (REF) | payer MEDICAID, SELFPAY ==
--- OUTSIDE RECORDS SUMMARY | 2024-04-26 12:42 | XMS_ITS | Clinical Summary ---
Author Organization [facility] Address [address] [place] [address] Care Team Providers Care Eviction Specialist Name Role Phone Gerber Whitfield PA-C Primary Care Provider + [phone] Source Comments PLEASE NOTE, if this patient [...] February 18, 2022 13:04 EST Encounter info: [id number], [facility], Disch IP, 02/18/2022 - 02/20/2022 * Final [...] of reflux into the IVC. 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 Trachea [...] cortext at 1:00 PM on 02/18/2022. WSN: [id number] Ordering Physician: Sandeep Vazquez Signature Line Dictated By: Gabriela Morales [...] H/O mammogram 06/13/2014: normal 04/09/2015 Overview (04/09/2015): [facility] Diagnostic Imaging Department [address] [place] [address] Patient: MERRITT DUMONT /Age/Sex: 1960 - 54 - F Unit#: [id number] Location/Status: SPDIMAM/REG CLI Mnemonic/[facility] Ordering Physician: GERBER WHITFIELD PA Gio Screening Digital - 06/13/14 - 09 History: Breast cancer screening. Technique: Bilateral full field digital mammography with Image evaluation on a [employer] work station with computer aided detection. Comparison: [id number] mammograms Findings: The breast tissue consists of a combination of fatty and fibroglandular elements (less than 25% fibroglandular tissue, category A density). There is no suspicious mass, architectural distortion, suspicious group of microcalcification or suspicious density. Impression: No mammographic evidence of malignancy. BIRADS category 1; negative study, 3341F code G0202, 70013, 7025F A negative mammogram in the presence [...] radiculopathy, lumbar region 02/18/2015 04/09/2015 Overview (04/09/2015): [facility] Diagnostic Imaging Department [address] [place] [address] Patient: MERRITT DUMONT/Age/Sex: 1960 - 55 - F Unit#: [id number] Location/Status: SPDIGEN/REG CLI Mnemonic/Ordering Site: SPINLUMWOB/SPDI Ordering [...] at the L1-2 and L2-3 levels. Code 03348 Dictating Physician: VERONICA KING MD Electronically Signed by: VERONICA KING MD Dic Date/Time: 02/18/15 1527 Sign date/Time: 02/18/15 1530 Anxiety and depression 04/09/2015 Seasonal allergies 07/04/2014 Non morbid obesity due to excess calories 2014 Dyspepsia 04/10/2014 Post-nasal drip 04/10/2014 Nasal congestion 03/16/2014 Encounters Date Type Department Care Team Description 02/11/2024 10:00 AM EST Office Visit [facility] [address] [place] [address] Seth Reich MD Screening for HPV (human papillomavirus) (Primary Dx); Vaginal atrophy; Cystocele with rectocele 02/11/2024 Travel 01/26/2024 9:00 AM EST Office Visit [facility] [address] [place] [phone] Floresita Everett MD [place], [place] Dyspnea on [...] Upcoming Encounters Date Type Department Care Team ([facility] st Contact Info) Description 05/03/2024 1:00 PM EST Office Visit [facility] [address] [place] [address] Seth Reich MD [address] [place] [address] 06/20/2024 3:00 PM EDT Office Visit [facility] [address] [place] [address] Gerber Whitfield PA-C [address] [place] [phone] Health Maintenance Due Date Last Done Comments HPV Screening 1960 Imm-Zoster, Recombinant (1 of 2) 02/11/2010 Annual Preventive Care Visit 10/10/2023 10/09/2022, 10/30/2019, 11/10/2013, Additional history exists Depression Monitoring 12/15/2023 09/14/2023 , 10/09/2022, 04/06/2022, Additional history exists Alcohol and Drug Screen 03/08/2024 09/14/19, 10/09/2022, 04/06/2022, Additional history exists [id number] () 06/03/2024 Postponed from 11/07/2023 (Patient postponement) Diabetes Screening [...] IMAGING SCANNED DOCUMENT 02/01/2024 3:00 AM EST COMPREHENSIVE METABOLIC PANEL Routine [...] 3:00 AM EST) Only the most recent of2 resultswithin the time period is included. 03/28/2024 3:00 AM EST Gerber Whitfield PA-Patrick SCAN REFERRAL Final Result * REFERRAL FOR CARDIAC STRESS TEST (02/16/2024 3:00 AM EST) 02/16/2024 3:00 AM EST Result [facility] Floresita Everett MD REFERRAL CARD Final Result * THIN PREP IMAGE PAP + HPV RNA E6/E7 W/RFLX HPV 16, 18/45 (02/11/2024 10:25 AM EST) CLINICAL INFORMATION See Note [employer] Comment:Postmenopausal LMP See Note [employer] Comment:NONE GIVEN PREV. PAP See Note [employer] Comment:NONE GIVEN PREV. BX See Note [employer] Comment:NONE GIVEN SOURCE See Note [employer] Comment:Cervix STATEMENT OF ADEQUACY See Note [employer] Comment: Satisfactory for evaluation. Endocervical/transformation zone component absent. INTERPRETATION/RESU LT See Note [employer] Comment: Cytology Results: Negative for intraepithelial lesion or malignancy. COMMENT See Note [employer] Comment: This Pap test has been evaluated with computer assisted technology. 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 Cervical sources are required for HPV testing. If a vaginal source from a patient who has had a total hysterectomy with removal of cervix was submitted, please contact the testing laboratory for alternative testing options. For additional information, please refer to http://education.[employer]/faq/DBM464k7 (This link if provided for information/ educational purposes only.) Swab Cervix uteri structure / Unknown 02/11/2024 10:25 AM EST 2024 2:08 AM EST Narrative [facility] - 02/16/2024 2:09 PM EST EXPLANATORY NOTE: [...] - NO BLOOD DRAW Final Resul t [facility] [address] [address], [employer] [address] [address] * IMAGING SCANNED DOCUMENT (02/01/2024 3:00 AM EST) Only the most recent of6 resultswithin the time period is included. 02/01/2024 3:00 AM EST Gerber Whitfield PA-C SCAN IMAGING Final Result * (ABNORMAL) LIPID PANEL (09/14/2023 10:41 AM EDT) CHOLESTEROL, TOTAL 226(H) <200 mg/dL [facility] HDL CHOLESTEROL 73 > OR = 50 mg/dL [employer] TRIGLYCERIDES 116 <150 mg/dL [facility] LDL-CHOLESTEROL 131(H) 99 mg/dL (calc) [employer] Comment: Reference range: <100 Desirable range <100 mg/dL for primary prevention; ?? <70 mg/dL for patients with CHD or diabetic patients with > or = 2 CHD risk factors. LDL-C is now calculated using the Beau-Kc calculation, which is a validated novel method providing better accuracy than the Friedewald equation in the estimation of LDL-C. Beau SS et al. MIGEL. 2013;310(19): 1264-8296 (http://education.[employer]/faq/QHP279) CHOL/HDLC RATIO 3.1 <5.0 (calc) [employer] [facility] NON-HDL CHOLESTEROL 153(H) <130 mg/dL (calc) [employer] Comment: For patients with diabetes plus 1 major ASCVD risk factor, treating to a non-HDL-C goal of <100 mg/dL (LDL-C of <70 mg/dL) is considered a therapeutic option. Blood Blood / Unknown 09/14/2023 1 0:41 AM EDT 09/14/2023 10:41 AM EDT Narrative [facility] - 09/17/2023 5:36 PM EDT FASTING:UNKNOWN us Gerber Whitfield PA-C LAB - BLOOD DRAW Final Resul t [facility] [address] [place] [address], [employer] [address] [place] [phone] * COMPREHENSIVE METABOLIC PANEL (09/14/2023 10:41 AM EDT) [facility] GLUCOSE 92 65 - 99 mg/dL [employer] Comment: ?Fasting reference interval UREA NITROGEN (BUN) 16 7 - 25 mg/dL [employer] CREATININE (blood) 0.68 0.50 - 1.05 mg/dL [employer] EGFR 98 > OR = 60 mL/min/1. 73m2 [employer] BUN/CREATININE RATIO SEE NOTE: [employer] Comment: ?? Not Reported: BUN and Creatinine are within ?? reference range. ? SODIUM 140 135 - 146 mmol/L [employer] POTASSIUM 4.7 3.5 - 5.3 mmol/L [employer] CHLORIDE 102 98 - 110 mmol/L [employer] CARBON DIOXIDE 31 20 - 32 mmol/L [employer] CALCIUM 9.8 8.6 - 10.4 mg/dL [employer] [facility] PROTEIN, TOTAL 7.3 6.1 - 8.1 g/dL [employer] [facility] ALBUMIN 4.4 3.6 - 5.1 g/dL [employer] [facility] GLOBULIN 2.9 1.9 - 3.7 g/dL (calc) [employer] [facility] ALBUMIN/GLOBULI N RATIO 1.5 1.0 - 2.5 (calc) [employer] [facility] BILIRUBIN, TOTAL 0.4 0.2 - 1.2 mg/dL [employer] [facility] ALKALINE PHOSPHATASE 89 37 - 153 U/L [employer] [facility] AST 13 10 - 35 U/L [employer] [facility] ALT 18 6 - 29 U/L [employer] [facility] Blood Blood / Unknown 09/14/2023 1 0:41 AM EDT 09/14/2023 10:41 AM EDT Narrative [employer] [facility] - 09/17/2023 5:36 PM EDT FASTING:UNKNOWN Gerber Whitfield PA-C LAB - BLOOD DRAW Edited Resu lt - Final [employer] [address] [address], [employer] [address] [address] * MAMMO DIGITAL SCREEN MELISSA W CAD 3D (11/24/2022 3:00 AM EDT) 11/24/2022 3:00 AM EDT Gerber Whitfield PA-C IMG MAMMO Edited Resul t - Final * HIV-1 & HIV-2 ANTIBODIES (10/30/2019 11:44 AM EDT) Pathologist [facility] HIV 1 AND 2 ANTIBODY SCREEN NEGATIVE NEGATIVE [facility] Comment: This assay is a 4th generation [...] 11:44 AM EDT 10/30/2019 1:59 PM EDT Narrative [facility] - 10/30/2019 4:45 PM EDT [employer], a member of [address] [address] [employer] - Kathleen Garcia MD [place] [id number] ORD# [id number] Gerber Whitfield PA-C LAB - BLOOD DRAW Final Resul t [address] [address], [place] [phone] * (ABNORMAL) HEPATITIS A,B,C PANEL (07/25/2013 1:22 PM EDT) HEPATITIS B SURFACE ANTIBODY POSITIVE(A) NEGATIVE [facility] HEPATITIS B SURFACE ANTIGEN NEGATIVE NEGATIVE [facility] HEPATITIS C VIRUS ANTIBODY NEGATIVE NEGATIVE [facility] HEPATITIS A ANTIBODY TOTAL POSITIVE(A) NEGATIVE [facility] HEPATITIS B CORE ANTIBODY POSITIVE(A) NEGATIVE [facility] Blood specimen (specimen) Blood / Unknown 07/25/2013 1:22 PM EDT 07/25/2013 1:55 PM EDT Narrative [facility] - 07/25/2013 8:42 PM EDT [employer] [address] [place] [address] [place] [id number] ORD# [id number] Gerber Whitfield PA-C LAB - BLOOD DRAW Edited Resu lt - Final [address] [address], [place] [phone] from Last 3 Months or Most Recently Relevant to Health Maintenance Insurance [id number] Care Teams Eviction Specialist Relationship Specialty Start Date End Date Gerber Whitfield PA-C [address] [place] [address] PCP - General Internal Medicine 06/12/13
[2024-04-27 03:21] LABS: CT PCR NOT DETECTED (Not Detect.); NG PCR NOT DETECTED (Not Detect.)
[2024-04-27 13:58] LABS: Bacterial Vaginosis PCR POSITIVE (Negative); Candida Group PCR NOT DETECTED (Not Detect); Candida glab krusei PCR NOT DETECTED (Not Detect); Trichomonas vaginalis PCR NOT DETECTED (Not Detect)
[2024-05-01 15:04] LABS: HPV Genotype 16 Negative (Negative); HPV Genotype 18 Negative (Negative); HPV High Risk Negative (Negative)
== END 2024-04-26 12:13 | disposition home or self-care (01) ==
LOC: HO.LNP 12:12
PROVIDERS: Visit Provider Advanced Practice Midwife
DX: Z01.419 Encounter for gynecological examination (general) (routine) without abnormal findings (principal)
CPT/HCPCS: 81515; 87491; 87591; 87626

== ENCOUNTER 2024-06-05 14:08 | Outpatient (RCR) | payer MEDICAID, SELFPAY ==
--- NOTE | 2024-02-14 15:01 | MHC.OT.EP ---
[address] [phone] Occupational Therapy Plan of Care Patient Name: Kyleigh Mohan Date of Evaluation: 02/14/24 Diagnosis: Bilateral hand pain Pain Location: bilateral thumbs MCP into the 2nd and 3rd digit and up forearm to the shoulder Pain Score: 7 Pain Scale Used: Numeric (0 - 10) Aggravating Factors: Comes on randomly cannot identify an aggravating factor Alleviating Factors: Medication: acetaminophen or advil Self massage helps Assessment: 64 y/o Niuean speaking F presents with bilateral hand pain that radiates up the arms into the shoulders that has been ongoing for 6 years. Patient is guarded and has a very forward rounded posture in the UE. Patient presents with significant pain and decreased overall strength that is inhibiting her functional abilities in her daily life. Patient reports difficulty with pulling up pants and other ADL tasks that involve the pinching and pulling mechanism. Patient would benefit from skilled OT services to decreased overall pain in the bilateral hands and upper extremity to improve overall function and engagement in ADL's. Frequency and Duration: The patient will be seen 2x week for 4 weeks Short Term Goals: patient will be IND with HEP patient will be report 4/10 resting pain patient will be IND with heat modalities at home patient will be IND with joint protection and activity modifications Animation Producer Goals: Patient will report 2/10 during ADL participation patient will increase wrist flexion to at least 60* bilaterally patient will increase wrist extension to 50* bilaterally Treatment Plan: Therapeutic Exercise Therapeutic Activity Home Exercise Program Splinting Patient Education Edema Control ADL Training Ultrasound NMES Iontophoresis Paraffin Fluidotherapy MHP Cold Packs Joint Mobilization Soft Tissue Mobilization Kinesiotaping Skilled OT and treat Electronically Signed By: Sunshine Patel OT/S; Adriana Barnard OTR/[employer] Please Sign and return to therapist. Thank you once again for your referral.
--- NOTE | 2024-06-05 14:49 | MHC.OT.DC ---
[address] [phone] F: [phone] Occupational Therapy Discharge Note Patient Name: Kyleigh Dumont Provider: Haider Porras Diagnosis: Bilateral hand pain Date of Evaluation: 02/14/24 Date of Discharge: 06/05/24 Treatments to Date: 9 Cancellations to Date: 6 No Shows to Date: 2 Discharge Status: Improved Function Independent with HEP Recommend MD Follow-up Discharge Summary: MS DUMONT HAS PROGRESSED WELL WITH HER OT RX SESSIONS. SHE REPORTS ONGOING RELIEF AFTER SOFT TISSUE MASSAGE, WELL USE OF THERAPUTIC HEAT. SHE HAS BEEN EDUCATED ON JOINT PROTECTION STRATEGIES AND AE/AT FOR HOME ADLs AND IADLs. SHE CONTINUES TO REPORT HIGH PAIN AT TIMES DURING THE DAY, UNABLE TO PINCH/ MAKE DOUGH. Pt IS READY TO TRANSITION TO A HOME BASED PROGRAM AND SUGGEST F/U WITH MD TO FURTHER DISCUSS PAIN MANGEMENT STRATEGIES. Electronically Signed By: LIZZ MADDOX Reviewed/agree with student documentation: N/A Therapist: LIZZ Maddox Please Sign and return to therapist, thank you for your referral.
== END 2024-06-05 14:45 | disposition home or self-care (01) ==
LOC: HO.OT 14:08
PROVIDERS: PCP Physician Assistant
DX: M65.4 Radial styloid tenosynovitis [de Quervain] (principal)
CPT/HCPCS: 29130; 97018; 97035; 97110; 97140; 97166; 97535; 97760

== ENCOUNTER 2024-06-08 15:43 | Outpatient (REF) | payer MEDICAID, SELFPAY ==
--- OUTSIDE RECORDS SUMMARY | 2024-06-08 16:58 | XMS_ITS | Clinical Summary ---
Author Organization [facility] Address [address] [place] [address] Care Team Providers Care [facility] Manager Name Role Phone Gerber Whitfield PA-C Primary Care Provider [phone] Source Comments PLEASE NOTE, if this patient [...] February 18, 2022 13:04 EST Encounter info: [id number], [facility], Disch IP, 02/18/2022 - 02/20/2022 * Final [...] of reflux into the IVC. 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 Trachea [...] cortext at 1:00 PM on 02/18/2022. WSN: [id number] Ordering Physician: Sandeep Vazquez Signature Line Dictated [...] H/O mammogram 06/13/2014: normal 04/09/2015 Overview (04/09/2015): [facility] Diagnostic Imaging Department [address] [place] [address] Patient: MERRITT DUMONT /Age/Sex: 1960 - 54 - F Unit#: [id number] Location/Status: SPDIMAM/REG CLI Mnemonic/[facility] Order[facility] Physician: GERBER WHITFIELD PA Gio Screening Digital - 06/13/14 - 09 History: Breast cancer screening. Technique: Bilateral full field digital mammography with Image evaluation on a Everdream work station with computer aided detection. Comparison: [id number] mammograms Findings: The breast tissue consists of a combination of fatty and fibroglandular elements (less than 25% fibroglandular tissue, category A density). There is no suspicious mass, architectural distortion, suspicious group of microcalcification or suspicious density. Impression: No mammographic evidence of malignancy. BIRADS category 1; negative study, 3341F code G0202, 41143, 7025F A negative mammogram in the presence [...] radiculopathy, lumbar region 02/18/2015 04/09/2015 Overview (04/09/2015): [facility] Diagnostic Imaging Department [address] [place] [address] Patient: MERRITT DUMONT/Age/Sex: 1960 - 55 - F Unit#: [id number] Location/Status: SPDIGEN/REG CLI Mnemonic/Ordering Site: [facility]/SPDI Ordering [...] at the L1-2 and L2-3 levels. Code 30195 Dictating Physician: VERONICA KING MD Electronically Signed by: VERONICA KING MD Dic Date/Time: 02/18/15 1527 Sign date/Time: 02/18/15 1530 Anxiety and depression 04/09/2015 Seasonal allergies 07/04/2014 Non morbid obesity due to excess calories 2014 Dyspepsia 04/10/2014 Post-nasal drip 04/10/2014 Nasal congestion 03/16/2014 Encounters Date Type Department Care Team Description 05/03/2024 1:00 PM EST Office Visit [address] [phone] Seth Reich MD [place], [place] Vaginal atrophy (Primary Dx) from Last 3 Months Immunizations Immunization Administration Dates Next Due INFLUENZA, SEASONAL, INJECTABLE 2014 Social History Tobacco Use Types Packs/Day Years Used Date Smoking Tobacco: Never Passive Smoke Exposure: Never Smokeless Tobacco: Never Alcohol Use Standard Drinks/Week Comments No 0 [...] Sign Reading Time Taken Comments Blood Pressure 117/80 05/03/2024 1:06 PM EST Pulse 72 05/03/2024 1:06 PM EST Temperature 36.7 ??C (98 ??F) 01/26/2024 8:52 AM EST Respiratory Rate 16 05/03/2024 1:06 PM EST Oxygen Saturation 95% 05/03/2024 1:06 PM EST Inhaled Oxygen Concentration - - Weight 112.9 kg (249 lb) 05/03/2024 1:06 PM EST Height 154.9 cm (5' 1 ) 05/03/2024 1:06 PM EST Body Mass Index 47.05 05/03/2024 1:06 PM EST Plan of Treatment Upcoming Encounters Date Type Department Care Team (Late st Contact Info) Description 06/20/2024 3:00 PM EDT Office Visit [facility] [address] [place] [phone] Gerber Whitfield PA-C [address] [place] [phone] 07/05/2024 10:20 AM EDT Office Visit [facility] [address] [place] [phone] Floresita Everett MD [address] [place] [address] [place] [address] Health Maintenance Due Date Last Done Comments Anxiety Screening 1960 HPV Screening 1960 Imm-Zoster, Recombinant (1 of 2) 02/11/2010 Annual Preventive Care Visit 10/10/202306/2022, 10/30/2019, 11/10/2013, Additional history exists Kfq-TQGFR-14 ( season) 2023 Depression Monitoring 12/15/2023 09/14/2023 , 10/09/2022, 04/06/2022, Additional history exists Alcohol and Drug Screen 03/08/2024 09/14/19, 10/09/2022, 04/06/2022, Additional history exists Diabetes Screening 09/13/2024 09/14/2023, 0 09/14/2023, 03/26/2021, Additional history exists Lipid Screening 09/13/2024 09/14/2023, 03/08, 05/13/2020, Additional history exists Breast Cancer Screening (Mammogram) 11/24/2024 11/24/2022, 09/23/2021, 09/23/2021, Additional history exists Tobacco Screening 05/03/2025 05/03/2024 Pap Smear 02/10/2027 02/11/2024, 11/11/2013 Cervical Cancer Screening 02/10/2029 Pap + HPV 02/10/2029 02/11/2024 Hepatitis C Screening Completed 07/25/2013 Imm-Influenza Discontinued 2014, 2014 HIV Screening Completed 10/30/2019 Cervical Ablation/Cold-Knife Conization Discontinued Cervical Cryotherapy Discontinued Colposcopy Discontinued Endometrial Biopsy Discontinued Excision/Leep Discontinued HPV Genotyping Discontinued Imm-DTaP/Tdap/Td Discontinued Vaginal Pap Discontinued Vulvoscopy Discontinued Procedures Procedure Name Priority Date/Time Associated Diagnosis Comments REFERRAL TO GYNECOLOGY Routine 3:00 AM EST Cervical cancer screening REFERRAL SCANNED DOCUMENT 03/28/2024 3:00 AM EST REFERRAL SCANNED DOCUMENT 03/22/2024 3:00 AM EST THIN PREP IMAGE PAP + HPV RNA E6/E7 W/RFLX HPV 16, 18/45 Routine 02/11/2024 10:25 AM EST Screening for HPV (human papillomavirus) COMPREHENSIVE METABOLIC PANEL Routine 09/14/2023 10:41 AM [...] Relevant to Health Maintenance Results * REFERRAL TO GYNECOLOGY (04/25/2024 3:00 AM EST) 04/25/2024 3:00 AM EST us Gerber Whitfield PA-C REFERRAL Final Result * REFERRAL SCANNED DOCUMENT (03/28/2024 3:00 AM EST) Only the most recent of2 resultswithin the time period is included. 03/28/2024 3:00 AM EST us Gerber Whitfield PA-C SCAN REFERRAL Final Result * THIN PREP IMAGE PAP + HPV RNA E6/E7 W/RFLX HPV 16, 18/45 (02/11/2024 10:25 AM EST) CLINICAL INFORMATION See Note [employer] Comment:Postmenopausal LMP See Note [employer] Comment:NONE GIVEN PREV. PAP See Note [employer] Comment:NONE GIVEN PREV. BX See Note [employer] Comment:NONE GIVEN SOURCE See Note [employer] Comment:Cervix STATEMENT OF ADEQUACY See Note [employer] Comment: Satisfactory for evaluation. Endocervical/transformation zone component absent. INTERPRETATION/RESU LT See Note [employer] Comment: Cytology Results: Negative for intraepithelial lesion or malignancy. COMMENT See Note [employer] Comment: This Pap test has been evaluated with computer assisted technology. 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 Cervical sources are required for HPV testing. If a vaginal source from a patient who has had a total hysterectomy with removal of cervix was submitted, please contact the testing laboratory for alternative testing options. For additional information, please refer to http://education.Meetup/faq/FRP699b1 (This link if provided for information/ educational purposes only.) Swab Cervix uteri structure / Unknown 02/11/2024 10:25 AM EST 2024 2:08 AM EST Narrative [facility] - 02/16/2024 2:09 PM EST EXPLANATORY [...] - NO BLOOD DRAW Final Resul t Performing Organization Address [facility]/ZIP Co de Phone Number [employer] [address] [address], [employer] [address] [address] * (ABNORMAL) LIPID PANEL (09/14/2023 10:41 AM EDT) CHOLESTEROL, TOTAL 226(H) <200 mg/dL [facility] HDL CHOLESTEROL 73 > OR = 50 mg/dL [facility] TRIGLYCERIDES 116 <150 mg/dL [facility] LDL-CHOLESTEROL 131(H) 99 mg/dL (calc) [facility] Comment: Reference range: <100 Desirable range <100 mg/dL for primary prevention; ?? <70 mg/dL for patients with CHD or diabetic patients with > or = 2 CHD risk factors. LDL-C is now calculated using the Beau-Yamini calculation, which is a validated novel method providing better accuracy than the Friedewald equation in the estimation of LDL-C. Beau SS et al. MIGEL. 2013;310(19): 5954-6073 (http://education.[employer]/faq/DUO149) CHOL/HDLC RATIO 3.1 <5.0 (calc) [facility] NON-HDL CHOLESTEROL 153(H) <130 mg/dL (calc) [facility] Comment: For patients with diabetes plus 1 major ASCVD risk factor, treating to a non-HDL-C goal of <100 mg/dL (LDL-C of <70 mg/dL) is considered a therapeutic option. Blood Blood / Unknown 09/14/2023 1 0:41 AM EDT 09/14/2023 10:41 AM EDT Narrative [facility] - 09/17/2023 5:36 PM EDT FASTING:UNKNOWN Gerber Whitfield PA-C LAB - BLOOD DRAW Final Resul t Performing Organization Address [facility]/ZIP Co de Phone Number [employer] [address] [address], [employer] [address] [place] [address] * COMPREHENSIVE METABOLIC PANEL (09/14/2023 10:41 AM EDT) GLUCOSE 92 65 - 99 mg/dL [facility] Comment: ?Fasting reference interval UREA NITROGEN (BUN) 16 7 - 25 mg/dL [facility] CREATININE (blood) 0.68 0.50 - 1.05 mg/dL [facility] EGFR 98 > OR = 60 mL/min/1. 73m2 [facility] BUN/CREATININE RATIO SEE NOTE: [employer] Comment: ?? Not Reported: BUN and Creatinine are within ?? reference range. ? SODIUM 140 135 - 146 mmol/L [facility] POTASSIUM 4.7 3.5 - 5.3 mmol/L [facility] CHLORIDE 102 98 - 110 mmol/L [facility] CARBON DIOXIDE 31 20 - 32 mmol/L [facility] CALCIUM 9.8 8.6 - 10.4 mg/dL [facility] PROTEIN, TOTAL 7.3 6.1 - 8.1 g/dL [facility] ALBUMIN 4.4 3.6 - 5.1 g/dL [facility] GLOBULIN 2.9 1.9 - 3.7 g/dL (calc) [facility] ALBUMIN/GLOBULI N RATIO 1.5 1.0 - 2.5 (calc) [facility] BILIRUBIN, TOTAL 0.4 0.2 - 1.2 mg/dL [facility] ALKALINE PHOSPHATASE 89 37 - 153 U/L [facility] AST 13 10 - 35 U/L [facility] ALT 18 6 - 29 U/L [facility] Blood Blood / Unknown 09/14/2023 1 0:41 AM EDT 09/14/2023 10:41 AM EDT Narrative [facility] - 09/17/2023 5:36 PM EDT FASTING:UNKNOWN us Gerber Whitfield PA-C LAB - BLOOD DRAW Edited Resu lt - Final [facility] [address] [address], [address] [address] [address] * MAMMO DIGITAL SCREEN MELISSA W CAD 3D (11/24/2022 3:00 AM EDT) 11/24/2022 3:00 AM EDT Gerber Whitfield PA-C IMG MAMMO Edited Resul t - Final * HIV-1 & HIV-2 ANTIBODIES (10/30/2019 11:44 AM EDT) HIV 1 AND 2 ANTIBODY SCREEN NEGATIVE NEGATIVE [facility] Comment: This assay is a 4th [...] AM EDT 10/30/2019 1:59 PM EDT Narrative [facility] - 10/30/2019 4:45 PM EDT [employer], [place] [address] [employer] - Kathleen Garcia MD [place] [id number] ORD# [id number] Gerber Whitfield PA-C LAB - [place] [address], * (ABNORMAL) HEPATITIS A,B,C PANEL (07/25/2013 1:22 PM EDT) HEPATITIS B SURFACE ANTIBODY POSITIVE(A) NEGATIVE [facility] HEPATITIS B SURFACE ANTIGEN NEGATIVE NEGATIVE [facility] HEPATITIS C VIRUS ANTIBODY NEGATIVE NEGATIVE [facility] HEPATITIS A ANTIBODY TOTAL POSITIVE(A) NEGATIVE [facility] HEPATITIS B CORE ANTIBODY POSITIVE(A) NEGATIVE [facility] Blood specimen (specimen) Blood / Unknown 07/25/2013 1:22 PM EDT 07/25/2013 1:55 PM EDT Narrative [facility] - 07/25/2013 8:42 PM EDT [facility] [address] [place] [address] PT ID [id number] ORD# [id number] us Gerber Whitfield PA-C LAB - BLOOD DRAW Edited Resu lt - Final [facility] [address] [place] [address], from Last 3 Months or Most Recently Relevant to Health Maintenance Insurance [employer] Care Teams [facility] Manager Relationship Specialty Start Date End Date Gerber Whitfield PA-C [address] [place] [phone] PCP - General Internal Medicine 06/12/13
== END 2024-06-08 15:44 | disposition home or self-care (01) ==
LOC: HO.MAMMO 15:43
PROVIDERS: PCP Physician Assistant; Visit Provider Advanced Practice Midwife
DX: Z12.31 Encounter for screening mammogram for malignant neoplasm of breast (principal)
CPT/HCPCS: 77063; 77067

== ENCOUNTER → 2024-06-08 15:45 | Outpatient (BNV) | payer MEDICAID, SELFPAY | PROVIDERS: PCP Physician Assistant; Visit Provider Internal Medicine | DX: Z12.31 Encounter for screening mammogram for malignant neoplasm of breast (principal) | CPT/HCPCS: 77063; 77067 ==